=== PATIENT | male | born 1980 | race Caucasian/White ===

== ENCOUNTER 2017-03-23 02:41 | Inpatient (IN) | payer OTHER ==
--- NOTE | ~2017-03-23 | CT16 ---
[facility] A Service of [facility] RADIOLOGY TEXT RESULTS PATIENT: BRENDA GHTORA LOCATION: [address] : [birth year] UNIT #: [id number] AGE: [address]: Sebastien Wood MD SEX: M ORDER DR: [id number] [facility] [address] [facility]. [place], [place] [address] [id number] I MR#: [id number] Acc #: [id number] NAME: BRENDA GHOTRA : 1980 SEX: M STUDY DATE/TIME: 04/06/2017 19:22 UNIT: [facility] ROOM: [facility] STUDY DESCRIPTION: CT Angio Chest for PE Attending Physician: Sebastien Wood M.D. Referring Physician: Sebastien Wood M.D. Ordering Physician: Ada Shell M.D. Primary Care Physician: Primary Care Physician No MEDICAL IMAGING REPORT This report is preliminary unless electronic signature is present EXAM Chest CT PE protocol with contrast, 04/06/2017 INDICATION 36-year-old male with respiratory failure. Ventilator patient. Alcohol detoxification. TECHNIQUE Contrast-enhanced CT scan of the chest PE protocol was performed with 3-D reformats. COMPARISON Noncontrast CT chest 03/28/2017. This CT exam was performed with one or more of the following radiation dose reduction techniques: automatic exposure control, adjustment of mA and/or kV according to patient size, and iterative reconstruction. FINDINGS CT CHEST: There is motion artifact and beam hardening artifact from nonstandard patient positioning. These were apparently the best images possible. IV bolus adequate. Aorta demonstrates no aneurysm or dissection. There is no evidence of acute pulmonary embolus in the central pulmonary dural tree. Beyond the first and proximal second-order branches sensitivity for detection of pulmonary embolus is degraded for the reasons described above. Probable reactive mediastinal nodes. Heart borderline in size. No axillary adenopathy. Probable reactive axillary nodes present as well. Upper abdomen demonstrates splenomegaly and cirrhosis, indicative of [facility] A Service [facility] RADIOLOGY TEXT RESULTS PATIENT: BRENDA GHOTRA [address] [id number] [facility] [birth year] UNIT #: [id number] AGE: [address]: Sebastien Wood MD SEX: M ORDER DR: portal hypertension. There is upper abdominal ascites. Gallbladder distended. Liver suboptimally characterized on this examination in the setting of cirrhosis. Multiphase imaging could be performed when clinically appropriate for further assessment of the liver in the setting of cirrhosis. There are bilateral effusions at least small in size. There is probable compressive atelectasis or less likely pneumonia in the lung bases. Correlate with physical exam. There are areas of consolidation in the upper lobes, left greater than right most characteristic of pneumonia. No pneumothorax. Osseous structures demonstrate no suspicious bone lesion. IMPRESSION 1. No evidence of acute pulmonary embolus in the central pulmonary arterial tree. 2. No aortic aneurysm or dissection. 3. Small bilateral effusions with compressive atelectasis or pneumonia in the lung bases. Patchy consolidation in the upper lobes left greater than right most characteristic of pneumonia. No pneumothorax. 4. Cardiomegaly and probable reactive mediastinal and axillary nodes. 5. Upper abdomen demonstrates cirrhosis and hepatosplenomegaly with ascites most characteristic of underlying portal hypertension. 6. Distended gallbladder within the field of view. Dictated by... Amadeo Pinedo M.D. THIS IS AN ELECTRONICALLY VERIFIED REPORT Amadeo Pinedo M.D. at 04/06/2017 10:51 PM MARGARITO/catherine TD: 04/06/2017 22:17 JOB #: [id number] MEDICAL IMAGING REPORT Page 1 of 1 COPY
--- NOTE | ~2017-03-23 | CO ---
Unit #: [id number] #: [id number] Patient: LUANN MIKE [id number] [address] [place], [place] [address] [id number] I MR#: [id number] NAME: LUANN MIKE ROOM: [facility] Age: 36 Sex: M Admission Date: 03/23/2017 : 1980 Attending Physician: Sebastien Wood M.D. Primary Care Physician: No Primary Care Physician CONSULTATION REPORT REASON FOR CONSULTATION Followup. DISCUSSION Mr. Luann Mike is a 36-year-old white male seen in CCU3, bed 21, on 03/27/2017 at [facility]. The patient was still intubated, but no agitation. The patient's sedation is being lowered. He was started on Haldol, Cogentin, Ativan combination. The patient is tolerating medication fairly well. No side effects from medication. Plan to wean him off of the tube. The patient's and mother were at the bedside. The patient's vital signs are temperature afebrile, pulse 103, respiratory rate 16, blood pressure 123/66, oxygen saturation 98%. MENTAL STATUS EXAMINATION General appearance, the patient is dressed in hospital attire, receiving IV and intubated. No agitation. Attention span and concentration, unable to assess. Recent and remote memory, orientation unable to assess. Mood and affect, unable to assess. Thought process, thought content, recent and remote memory, language, fund of knowledge unable to assess. Insight and judgment impaired. DIAGNOSES Psychiatric: Alcohol use disorder, severe, F10.20. ASSESSMENT/PLAN 1. Psychotherapy, psychoeducation provided to the patient's family. 2. Educated about the benefits and side effects of the medication, course and prognosis of illness to the family. 3. If needed, consider further adjustment of medication. We will closely follow. Please feel free to call if any questions, telephone number [phone]. Dictated by.Julianne To/elaine TD: 03/28/2017 11:01 JOB #: [id number] Unit #: [id number] #: [id number] Patient: LUANN MIKE CONSULTATION REPORT Page 1 of 1 X Lopez Rainey MD CONSULTATION REPORT
--- NOTE | ~2017-03-23 | CT71 ---
[facility] A Service of [facility] RADIOLOGY TEXT RESULTS PATIENT: BRENDA GHOTRA LOCATION: [address] : [birth year] UNIT #: [id number] AGE: [address]: Sebastien Wood MD SEX: M ORDER DR: [id number] [place] [id number] [facility]. [place], [place] [address] [id number] I MR#: [id number] Acc #: [id number] NAME: BRENDA GHOTRA : 1980 SEX: M STUDY DATE/TIME: 03/28/2017 15:11 UNIT: [facility] ROOM: [facility] STUDY DESCRIPTION: CT Head Wo Contrast Attending Physician: Sebastien Wood M.D. Referring Physician: Sebastien Wood M.D. Ordering Physician: Ada Shell M.D. Primary Care Physician: No Primary Care Physician MEDICAL IMAGING REPORT This report is preliminary unless electronic signature is present EXAM CT of brain without contrast. HISTORY Acute mental status decline, confusion for [address] exam was performed with one or more of the following radiation dose reduction techniques: automatic exposure control, adjustment of mA and/or kV according to patient size, and iterative reconstruction. FINDINGS CT brain without contrast demonstrates no intracranial hemorrhage, mass or edema. No midline shift or ventricular dilatation or extraaxial fluid collection. Mucosal thickening in ethmoid air cells and in the inferior maxillary sinuses and in the frontal and sphenoid sinuses bilaterally. There is also opacification of multiple bilateral mastoid air cells. IMPRESSION 1. Negative CT brain. 2. Paranasal sinusitis. Dictated by... Ishan Choi M.D. THIS IS AN ELECTRONICALLY VERIFIED REPORT Ishan Choi M.D. at 03/28/2017 11:33 PM ANEL/blanquita TD: 03/28/2017 21:35 JOB #: [id number] [facility] A Service [facility] RADIOLOGY TEXT RESULTS PATIENT: BRENDA GHOTRA LOCATION: [facility] CICCU3-21 : 82 UNIT #: [id number] AGE: [address]: Sebastien Wood MD SEX: M ORDER DR: MEDICAL IMAGING REPORT Page 1 of 1 COPY
--- NOTE | ~2017-03-23 | FU ---
[facility] Nutrition Therapy DATE: 04/03/17 Patient: BRENDA GHOTRA Physician: SHAUN Address: [address] [facility] Room/Bed: [address], Zip: [place] [address] Admit Date: 03/23/17 Date of : [birth year] Height: 5 6 Weight: 202 92 NUTRITION MONITORING/FOLLOW-UP: Reason: Enteral nutrition follow-up Admitting Dx: 36 y/o male admitted with acute respiratory failure after being admitted to [facility] to undergo ETOH detox Anthropometrics: Ht: 66", admission wt: 75 kg, current wt: 92 kg (04/03), BMI: 26.6 (overweight; based on admission wt) Labs: K+ 3.4, AST 99 (trending down), ALT 58 (trending down), Mg/Na WNL, no Phos Meds: Miralax, Precedex, Propofol @ 10.3 ml/hr, Vit B12, Fentanyl, Versed, PPI, Milk of Mg, Thiamine, Folic acid, MVI with minerals, oral Zinc, Loperamide, psych meds noted GI: Last BM 03/28, abdomen firm, RN confirms patient is not impacted, bowel regimen started 04/02 Skin: Issues reviewed, no changes; 2-3+ edema noted Estimated Nutrition Needs: 1034-2452 kcals per day (25-28 kcals/kg admission wt) 75-90 g protein per day (1-1.2 g/kg admission wt) Fluids consistent with kcal needs or per MD Assessment: Chart reviewed, events noted. Patient still intubated, + trach 04/02, still no BM in 5 days however a bowel regimen was started yesterday. RN confirms patient's abdomen is firm but he is not impacted. He is following some simple commands. Enteral feeds are off at this time due to possible PEG placement this afternoon, however RN noted he has been tolerating his previous EN regimen: Jevity 1.5 @ 30 ml/hr (goal WITH Propofol) + Prostat TID through DHT. Unable to determine volume received past 24 hours as pump history is not available at this time. Propofol is currently providing 272 lipid kcals, was providing 813 lipid kcals 2 days ago at time of last RD follow-up- will adjust recs accordingly and continue to follow hospital course. See nutritional goals, diagnoses and recs as stated below. Dx: 1) Inadequate enteral nutrition infusion r/t EN held AEB 42% goal volume received x 24 hours, 63% received x 38 hours - NO LONGER RELEVANT 2) Unintentional weight loss r/t ETOH abuse AEB patient's mother/RN report - ACTIVE New dx: 1) Inadequate enteral nutrition infusion r/t possible PEG placement AEB EN on hold. [facility] Nutrition Therapy DATE: 04/03/17 Patient: BRENDA GHOTRA Physician: SHAUN Address: [address] [facility] Room/Bed: [address], Zip: [place] [address] Admit Date: 03/23/17 Date of : [birth year] Height: 5 6 Weight: 202 92 Intervention: See recs below Monitoring, Evaluation and Goals: 1. EN to provide > 80% goal volume x 24 hours - UNABLE TO DETERMINE (Pump off) 2. Labs WNL - IN PROGRESS (K+ low, AST/ALT elevated) 3. Prevent unintentional weight loss -IN PROGRESS (weight up 17 kg since admission; edema vs inaccurate scales?) 4. GI function WNL - IN PROGRESS (still no BM since 03/28; bowel regimen in place) Monitor: Per protocol, criteria to determine if above goals met Recommendations: 1. If PEG is placed resume enteral nutrition once able with Jevity 1.5 @ 20 ml/hr and increase by 10 ml q 4 hours until *NEW GOAL RATE CONSIDERING DECREASE IN PROPOFOL RATE* of 45 ml/hr is reached and decrease Prostat to 30 ml daily. This nutrition regimen + kcals from Propofol (currently @ 10.3 ml/hr providing 272 lipid kcals) will provide 1992 kcals, 84 g protein and [address] will monitor Propofol rate during daily rounds with team and adjust recs as needed. If Propofol is D/C increase feeds to new goal rate of 55 ml/hr and discontinue Prostat. This will provide 1980 kcals, 84 g protein and 1003 ml water. 3. Continue bowel regimen to promote regular BM's. Status: Moderate nutrition risk Respectfully, Nakia Garcia, RD, LD [facility] and Nutritional Services [facility] cc: client file
--- NOTE | ~2017-03-23 | CR72 ---
[facility] Service of [facility] RADIOLOGY TEXT RESULTS PATIENT: BRENDA GHOTRA LOCATION: [address] : [birth year] UNIT #: [id number] AGE: [address]: Sebastien Wood MD SEX: M ORDER DR: [id number] [facility] [address] [facility]. [place], [place] [address] [id number] MR#: [id number] Acc #: [id number] NAME: BRENDA GHOTRA : 1980 SEX: M STUDY DATE/TIME: 03/31/2017 UNIT: [facility] ROOM: [facility] STUDY DESCRIPTION: CR Chest Single View Portable Attending Physician: Sebastien Wood M.D. Referring Physician: Sebastien Wood M.D. Ordering Physician: Talia Mansfield M.D. Primary Care Physician: Primary Care Physician No MEDICAL IMAGING REPORT This report is preliminary unless electronic signature is present EXAM Chest portable 03/31/2017 09:16 hours HISTORY 36-year-old with ethanol detox, withdrawal and shortness of air. Symptoms since 03/23/2017. COMPARISON 03/31/2017 03:41 hours FINDINGS Portable upright film demonstrates persistent low lung volumes with are stable satisfactory positioning of the endotracheal tube, left IJ catheter and flexible feeding tube. There are persistent bilateral airspace changes unchanged. There is no definite pleural effusion or pneumothorax. IMPRESSION No appreciable change from 0341 hours. Stable support equipment with persistent bilateral airspace changes. Dictated by... Josy Silverio M.D. THIS IS AN ELECTRONICALLY VERIFIED REPORT Josy Silverio M.D. at 03/31/2017 2:26 PM SMM/jordan TD: 03/31/2017 12:54 JOB #: [id number] MEDICAL IMAGING REPORT Page 1 of 1 COPY
--- NOTE | ~2017-03-23 | A ---
[facility] Nutrition Therapy DATE: 03/24/17 Patient: BRENDA GHOTRA Physician: SHAUN Address: [address] [place] [address] Room/Bed: [address], Zip: [place] [address] Admit Date: 03/23/17 Date of : [birth year] Height: 5 6 Weight: 165 75 NUTRITIONAL ASSESSMENT: REASON: Seen due to NPO/intubation in ICU, receiving enteral nutrition + consult related to ETOH abuse Admitting Dx: 36 y/o male admitted from [facility] with acute respiratory failure/ETOH detox PMH: Daily ETOH/marijuana abuse, 1 ppd smoker, GERD, genital herpes Anthropometrics: Ht: 66", Wt: 75 kg (165 lbs), BMI: 26.6 (overweight) Labs: K+ 3.1, Mg 1.5, AST 239, ALT 78 Meds: Phenergan, D5, Fentanyl, IVF, Versed, Milk of Mg, Loperamide, PPI, Vit B12, Therapeutic formula, Thiamine, Folic acid, MgSO4 I/O & Bowel function: 3262/2098, LBM 5/8 Skin Integrity: Reviewed; no nutritionally significant issues Estimated Nutrition Needs: 9782-[address] kcals per day (25-28 kcals/kg) 75-90 g protein per day (1-1.2 g/kg) Fluids consistent with kcal needs or per MD Assessment: Chart reviewed, events noted. See admitting dx and PMH as stated above. Patient is currently intubated and sedated with fentanyl/versed, propofol is off at this time. Although the patient scored 0 points on the malnutrition risk screen RN reports that the patient's mother states he has lost a significant amount of weight over the past months, but she is unsure how much. He is currently receiving enteral nutrition per DHT with Jevity 1.5 @ 20 ml/hr, to increase per RD recs. Pt is at risk for refeeding syndrome due to daily ETOH abuse, electrolyte abnormalities and weight loss- see recs below. Will continue to follow hospital course. Dx: Inadequate enteral nutrition infusion r/t goal rate not yet established AEB Jevity 1.5 @ 20 ml/hr. Unintentional weight loss r/t ETOH abuse AEB mother/RN report. Intervention: Increase EN to goal, monitor for s/s of refeeding syndrome, replace lytes Monitoring, Evaluation and Goals: [facility] Nutrition Therapy DATE: 03/24/17 Patient: BRENDA GHOTRA Physician: SHAUN Address: [address] [place] [address] Room/Bed: [address], Zip: [place] [address] Admit Date: 03/23/17 Date of : [birth year] Height: 5 6 Weight: 165 75 1. EN consistent with estimated nutrition needs. 2. Prevent/correct micro/macro nutritent deficiencies. 3. Improvement in labs (lytes, AST, ALT WNL). 4. Prevent unintentional weight loss. Monitor: Per protocol, criteria to determine if above goals met Recommendations: 1. Aggressively replace lytes to WNL prn (K/Mg low). 2. Increase enteral feeds with Jevity 1.5 by 10 ml q 12 hours until goal rate of 55 ml/hr is reached, to provide 1980 kcals, 84 g protein and 1003 ml water. Once at goal rate add free water flushes of 250 ml QID and hold liquid IVF, or per MD. *Patient is at risk for refeeding syndrome, please closely monitor lytes and replace prn, monitor glucose. 3. Continue MVI, Thiamine, Folic acid. 4. If extubated advance to regular diet as tolerated, suggest WELL [employer]ING [employer]TAIN eval if intubated for > 48 hours. Patient could benefit from oral nutrition supplement such as Ensure Enlive BID due to recent weight loss- please order (available in chocolate/vanilla/strawberry). RD will follow hospital course Moderate-severe nutrition risk Respectfully, Nakia Garcia, DEVON, LD Food and Nutritional Services [facility] cc: client file
--- NOTE | ~2017-03-23 | OR ---
Unit #: [id number] #: [id number] Patient: BRENDA GHOTRA [id number] [address] [place], [place] [address] [id number] MR#: [id number] NAME: BRENDA GHOTRA ROOM: [facility] Date of Procedure: 04/04/2017 Admission Date: 03/23/2017 Surgeon: Pancho Fragoso M.D. : 1980 Attending Physician: Sebastien Wood M.D. Referring Physician: Sebastien Wood M.D. Primary Care Physician: Primary Care Physician No OPERATIVE REPORT PROCEDURE PERFORMED Esophagogastroduodenoscopy with percutaneous endoscopic gastrostomy tube placement. INDICATIONS FOR PROCEDURE A 36-year-old gentleman with severe mental status changes, needed enteral access for prolonged feeding. MEDICATIONS Monitored anesthesia. POSTOPERATIVE FINDINGS 1. Early esophageal varices. 2. Normal stomach, normal duodenum and distal duodenum. 3. Successful placement of G-tube by push method. PLAN Please see inpatient orders. DESCRIPTION OF PROCEDURE The patient was explained of the procedure, risks, and benefits. Informed consent was obtained from power of transactional attorney. Endo team was brought to the ICU. The patient already on tracheostomy. Monitored anesthesia was given. The scope was passed down the mouth into the esophagus, stomach, duodenum, and distal duodenum. Exam was completed. Findings as described. At this point, we found a good spot for PEG tube placement by transillumination and indentation. The skin was then cleaned and draped. Small incision was made. Trocar and cannula passed through the incision. A wire was passed through the trocar, where it was pulled out of the patient's mouth using a scope and snare from the inside. Push method tube was placed over the wire and pulled out of the anterior abdominal wall, where it was secured with an external bumper. The scope was reintroduced. Minimal bleeding was seen. Gently, I pulled the scope out. He tolerated it well. No major complications were seen. Dictated by... Julianne Howard/sera TD: 04/04/2017 23:07 Unit #: [id number] #: [id number] Patient: BRENDA GHOTRA JOB #: [id number] OPERATIVE REPORT Page 1 of 1 X Pancho Fragoso MD PROCEDURE OPERATIVE NOTE
--- NOTE | ~2017-03-23 | CO ---
Unit #: [id number] #: [id number] Patient: LUANN GHOTRA [id number] [facility] [address] [facility]. [place], [place] [address] [id number] MR#: [id number] NAME: LUANN GHOTRA ROOM: [facility] Age: 36 Sex: M Admission Date: 03/23/2017 : 1980 Attending Physician: Sebastien Wood M.D. Primary Care Physician: Primary Care Physician No Consultation Date: 04/04/2017 CONSULTATION REPORT REASON FOR CONSULTATION Followup. DISCUSSION Mr. Luann Ghotra is a 36-year-old white male, seen in CCU-3, bed 21 on 04/04/2017 at [facility]. The patient is still somewhat agitated, needing bilateral hand restraints, breathing through the trach. The patient was ventilated. The patient was unable to give any coherent history. Still having problem with the aggression and confusion. The patient's vital signs; temperature 97.1, pulse 73, respirations 24, blood pressure 114/62, oxygen saturation 92%. The patient is on Haldol, Cogentin, and Ativan combination, which was effective. In the morning when he was agitated, the patient is getting t.i.d. through Dobbhoff tube. Information obtained from the nursing staff, chart reviewed. REVIEW OF SYSTEMS A complete review of systems is unremarkable, unable to obtain. MENTAL STATUS EXAMINATION Vital signs; please see above. General appearance; the patient dressed in hospital attire, lying in bed, receiving oxygen through trach, ventilated, receiving IV. The patient was somewhat agitated. Attention span and concentration, poor. Speech, unable to assess. Orientation, mood and affect, thought process, thought content; unable to assess. Recent and remote memory; unable to assess. Language and fund of knowledge; unable to assess. Insight and judgment, impaired. DIAGNOSES Psychiatric: Delirium, F05; alcohol use disorder, [id number], F10.20. ASSESSMENT AND PLAN Recommending at this time to continue with current medication combination. Continue with hand restraint for safety of the patient. If needed, consider change of medication. Please feel free to call if any questions, telephone #[phone]. Dictated by... Lopez Rainey M.D. [facility]/sera Unit #: [id number] #: [id number] Patient: LUANN GHOTRA TD: 04/05/2017 14:12 JOB #: [id number] CONSULTATION REPORT Page 1 of 1 X Lopez Rainey MD CONSULTATION REPORT
--- NOTE | ~2017-03-23 | CO ---
Unit #: [id number] #: [id number] Patient: BRENDA GHOTRA [id number] [address] [address] [id number] I MR#: [id number] NAME: BRENDA HGOTRA ROOM: [facility] Age: 36 Sex: M Admission Date: 03/23/2017 : 1980 Attending Physician: Sebastien Wood M.D. Primary Care Physician: No Primary Care Physician Consultation Date: 04/02/2017 CONSULTATION REPORT REASON FOR CONSULTATION Followup. DISCUSSION Mr. Knog is a 36-year-old white male seen in CCU-3 bed-21 on 04/02/17. Patient was extubated and trach was placed. Patient is still on propofol, gradually tapering, still having problem with the agitation, requiring restraint bilateral. Currently on Cogentin, haloperidol, Ativan. No side effects of medication. Unable to give any reliable information. MENTAL STATUS EXAMINATION VITAL SIGNS: Temperature afebrile, pulse 97, respirations 16, blood pressure 128/76. Oxygen saturation 99%. GENERAL APPEARANCE: Patient dressed in hospital attire. Attention span and concentration poor. Speech - unable to assess. Orientation - unable to assess. Mood and affect - labile. Thought process/thought content/recent and remote memory - unable to assess. Language - unable to assess. Fund of knowledge impaired. Insight and judgment impaired. DIAGNOSIS PSYCHIATRIC: 1. Alcohol use disorder, severe, - F10.20 2. Delirium - F05 ASSESSMENT/PLAN Advised to continue with bilateral hand restraints for the safety. Continue with current medication with the plan to consider additional medication if needed. Continue with the treatment at ICU. We will continue to follow. Please feel free to call if any questions. Telephone number [phone]. Dictated by... Lopez Rainey M.D. VAL/edgar TD: 04/03/2017 05:50 JOB #: [id number] Unit #: [id number] #: [id number] Patient: BRENDA GHOTRA CONSULTATION REPORT Page 1 of 1 X Chhibber,Lopez Z MD X CONSULTATION REPORT
--- NOTE | ~2017-03-23 | CR72 ---
[facility] A Service of [facility] RADIOLOGY TEXT RESULTS PATIENT: BRENDA GHOTRA LOCATION: [address] : 82 UNIT #: [id number] AGE: [address]: Vikash Davila MD SEX: M ORDER DR: [id number] [facility] [address] [facility]. [place], [place] [address] [id number] I MR#: [id number] Acc #: [id number] NAME: BRENDA GHOTRA : 1980 SEX: M STUDY DATE/TIME: 04/08/2017 4:18 UNIT: [facility] ROOM: [facility] STUDY DESCRIPTION: CR Chest Single View Portable Attending Physician: Vikash Davila M.D. Referring Physician: Sebastien Wood M.D. Ordering Physician: Ada Shell M.D. Primary Care Physician: No Primary Care Physician MEDICAL IMAGING REPORT This report is preliminary unless electronic signature is present EXAM Single view chest. HISTORY Respiratory failure. Alcohol withdrawal. Pneumonia. COMPARISON CT thorax, 04/06/2017. FINDINGS A single portable AP view of the chest was obtained. Tracheostomy and right PICC remain in place. Heart and mediastinal structures are unchanged. Diffuse airspace opacities and pleural effusions are unchanged. No pneumothorax. IMPRESSION No interval change. Dictated by... Bryant Peck M.D. THIS IS AN ELECTRONICALLY VERIFIED REPORT Bryant Peck M.D. at 04/08/2017 9:07 PM Rhys TD: 04/08/2017 11:04 JOB #: [id number] MEDICAL IMAGING REPORT Page 1 of 1 COPY
--- NOTE | ~2017-03-23 | US139 ---
[facility] A Service of [facility] RADIOLOGY TEXT RESULTS PATIENT: BRENDA GHOTRA LOCATION: [place] [address]-21 : 82 UNIT #: [id number] AGE: [address]: Sebastien Wood MD SEX: M ORDER DR: [id number] [facility] [address] [facility]. [place], [place] [address] [id number] I MR#: [id number] Acc #: [id number] NAME: BRENDA GHOTRA : 1980 SEX: M STUDY DATE/TIME: 04/02/2017 16:59 UNIT: [facility] ROOM: [facility] STUDY DESCRIPTION: US UE Veins Complete Wisam Stdy Attending Physician: Sebastien Wood M.D. Referring Physician: Sebastien Wood M.D. Ordering Physician: Vikash Davila M.D. Primary Care Physician: No Primary Care Physician MEDICAL IMAGING REPORT This report is preliminary unless electronic signature is present EXAM Color Doppler ultrasound examination of the right upper extremity. HISTORY Bilateral upper extremity swelling for the past 2 days. TECHNIQUE Ultrasound evaluation was performed with morales-scale, color-flow and Doppler spectral waveform analysis. FINDINGS There is a short segment of superficial venous occlusive disease in the proximal cephalic vein. There is no evidence of DVT. The axillary subclavian and jugular veins as well as the brachial veins are widely patent with good compressibility and good augmentation of flow with distal compression. All veins on the left are widely patent. IMPRESSION Normal examination of the left. Superficial venous thrombosis is seen involving a segment of the proximal cephalic vein. The deep veins on the right are widely patent. Dictated by... Ronny Gardner M.D. THIS IS AN ELECTRONICALLY VERIFIED REPORT Ronny Gardner M.D. at 04/04/2017 12:41 PM SAIMA/blanquita TD: 04/02/2017 19:11 JOB #: [id number] [facility] A Service [facility] RADIOLOGY TEXT RESULTS PATIENT: BRENDA GHOTRA [address] [birth year] UNIT #: [id number] AGE: [address]: Sebastien Wood MD SEX: M ORDER DR: MEDICAL IMAGING REPORT Page 1 of 1 COPY
--- NOTE | ~2017-03-23 | FU ---
[facility] Nutrition Therapy DATE: 03/27/17 Patient: BRENDA GHOTRA Physician: MORCAR Address: [facility] [facility] Room/Bed: [address], Zip: [place] [address] Admit Date: 03/23/17 Date of : [birth year] Height: 5 6 Weight: 188 85.5 NUTRITION MONITORING/FOLLOW-UP: Reason: Enteral nutrition follow-up Anthropometrics: Ht: 66" Adm wt: 75 kg BMI: 26.6 Current wt: 85.5 kg Labs: Ca++ 7.7, Alb 2.2, AST 156, ALT 54 Meds: NaCl, Mg, K, Phenergan, Protonix, Vitamin B12, Folic acid, Thiamine, Milk of Magnesia, Zofran I&O's: 8524/3064, last BM 03/24 Skin: No changes Edema: BUE 1+ Estimated Nutrition Needs: 3444-2339 kcal (25-28 kcal/kg) 75-90 g protein (1.0-1.2 g/kg) Assessment: Chart reviewed, events noted. Pt remains intubated in ICU. Per RN, pt's sedation has been turned off this am. Per RN, pt is tolerating tube feeds of Jevity 1.5 @ goal rate of 55 mL/hr. Per pump history, pt received 72% of goal volume x 48 hrs. Per RN, pt had bronoscopy yesterday (03/26) which revealed PNA. Per chart, physician diagnosed pt with moderate protein-calorie malnutrition d/t recent weight loss, moderate-severe nutrition risk, signs of circulatory collapse and low albumin. Nutrition dx remains, see new evidence. See recommendations below. *Of note, RD unable to definitively diagnose with protein calorie malnutrition at this time, as the patient's weight loss and PO intake prior to arrival is unknown. He did not appear to have any physical s/s of muscle/fat loss. Dx: Inadequate enteral nutrition infusion RT bronchoscopy AEB pt receiving 72% of goal volume x 48 hrs. -ACTIVE Unintentional weight loss RT ETOH abuse AEB mother/RN report. -ACTIVE Intervention: 1. Continue current enteral nutrition regimen [facility] Nutrition Therapy DATE: 03/27/17 Patient: BRENDA GHOTRA Physician: SHAUN Address: [address] [facility] Room/Bed: [address], Zip: [place] [id number] Admit Date: 03/23/17 Date of : [birth year] Height: 5 6 Weight: 188 85.5 Monitoring, Evaluation and Goals: 1. Enteral nutrition; provide >80% of estimated needs and goal volume -NOT MET/IN PROGRESS 2. Labs; WNL -IN PROGRESS 3. Weight; prevent unintentional weight loss -IN PROGRESS Recommendations: 1. Continue enteral nutrition support with Jevity 1.5 @ 55 mL/hr. This provides: 1980 kcal/ 84 g protein/ 1003 mL free H2O. 2. If extubated, recommend CAR HEAD LINER INSTALLER evaluation. Advance diet as tolerated to regular per CAR HEAD LINER INSTALLER evaluation. Pt would benefit from oral nutrition supplements, consider ordering Ensure once diet advances. 3. Suggest checking Phos level with next lab draw due to risk for refeeding syndrome. If low replete to WNL. Status: Pt is at a moderate nutritional risk. RD will f/u per protocol. Respectfully, Mouna Martinez, Hand Paint Mixer Nakia Garcia RD, LD Food and Nutritional Services [facility] cc: client file
--- NOTE | ~2017-03-23 | CR72 ---
[facility] A Service of [facility] & [facility] RADIOLOGY TEXT RESULTS PATIENT: BRENDA GHOTRA LOCATION: [address] : 82 UNIT #: [id number] AGE: [address]: Sebastien Wood MD SEX: M ORDER DR: [id number] [facility] [address] [facility]. [place], [place] [address] [id number] I MR#: [id number] Acc #: [id number] NAME: BRENDA GHOTRA : 1980 SEX: M STUDY DATE/TIME: 03/25/2017 11:46 UNIT: [facility] ROOM: [facility] STUDY DESCRIPTION: CR Chest Single View Portable Attending Physician: Sebastien Wood M.D. Referring Physician: Sebastien Wood M.D. Ordering Physician: Sebastien Wood M.D. Primary Care Physician: No Primary Care Physician MEDICAL IMAGING REPORT This report is preliminary unless electronic signature is present EXAM Portable chest, 03/25/2017. HISTORY Ventilator patient. Alcohol detoxification, short of air. FINDINGS AP portable chest compared with earlier today. Endotracheal tube, mid trachea. Left-sided central venous catheter tip in the lower SVC. Heart size stable. Fairly extensive infiltrate in the left lung is stable. No pneumothorax is identified. There is a small volume of left pleural fluid. Dictated by... Ronny Villaseñor Jr., M.D. THIS IS AN ELECTRONICALLY VERIFIED REPORT Ronyn Villaseñor Jr., M.D. at 03/25/2017 4:48 PM FRANKLIN/reji TD: 03/25/2017 13:52 JOB #: [id number] MEDICAL IMAGING REPORT Page 1 of 1 COPY
--- NOTE | ~2017-03-23 | CR72 ---
[facility] A Service of [facility] & [facility] RADIOLOGY TEXT RESULTS PATIENT: BRENDA GHOTRA LOCATION: [address]21 : [birth year] UNIT #: [id number] AGE: [address]: Sebastien Wood MD SEX: M ORDER DR: [id number] [facility] [address]. [place], [place] [address] [id number] I MR#: [id number] Acc #: [id number] NAME: BRENDA GHOTRA : 1980 SEX: M STUDY DATE/TIME: 03/29/2017 5:50 UNIT: [facility] ROOM: [facility] STUDY DESCRIPTION: CR Chest Single View Portable Attending Physician: Sebastien Wood M.D. Referring Physician: Sebastien Wood M.D. Ordering Physician: Ada Shell M.D. Primary Care Physician: Primary Care Physician No MEDICAL IMAGING REPORT This report is preliminary unless electronic signature is present EXAM Portable chest INDICATION Follow up support lines and tubes. COMPARISON 03/28/2017. FINDINGS Support lines and tubes are stable. Worsening right lung infiltrates and also worsening infiltrates within the left lung. Heart size stable. IMPRESSION Worsening bilateral pulmonary infiltrates. Support lines and tubes are stable. Dictated by... Narciso Garcia M.D. THIS IS AN ELECTRONICALLY VERIFIED REPORT Narciso Garcia M.D. at 03/29/2017 3:56 PM DARRELL/callum TD: 03/29/2017 15:05 JOB #: [id number] MEDICAL IMAGING REPORT Page 1 of 1 COPY
--- NOTE | ~2017-03-23 | CR72 ---
[facility] A Service of [facility] RADIOLOGY TEXT RESULTS PATIENT: BRENDA HGOTRA LOCATION: [address] : [birth year] UNIT #: [id number] AGE: [address]: Sebastien Wood MD SEX: M ORDER DR: [id number] [place] [id number] [place], [place] [address] [id number] I MR#: [id number] Acc #: [id number] NAME: BRENDA GHOTRA : 1980 SEX: M STUDY DATE/TIME: 03/25/2017 9:00 UNIT: [facility] ROOM: [facility] STUDY DESCRIPTION: CR Chest Single View Portable Attending Physician: Sebastien Wood M.D. Referring Physician: Sebastien Wood M.D. Ordering Physician: Physician Non-Staff Primary Care Physician: No Primary Care Physician MEDICAL IMAGING REPORT This report is preliminary unless electronic signature is present EXAM Portable chest. INDICATION Endotracheal tube placement. COMPARISON STUDIES Comparison with yesterday. FINDINGS Stable ET tube. New infiltrate in the left upper and mid zone. Worsening consolidation left base. Heart size stable. IMPRESSION New infiltrate left upper and mid zone and worsening consolidation left base. Endotracheal tube is stable. Dictated by... Narciso Garcia M.D. THIS IS AN ELECTRONICALLY VERIFIED REPORT Narciso Garcia M.D. at 03/26/2017 5:13 PM DARRELL/satish TD: 03/25/2017 10:02 JOB #: [id number] MEDICAL IMAGING REPORT Page 1 of 1 COPY
--- NOTE | ~2017-03-23 | CO ---
Unit #: [id number] #: [id number] Patient: BRENDA GHOTRA [id number] [address] [place], [place] [address] [id number] I MR#: [id number] NAME: BRENDA GHOTRA ROOM: [facility] Age: 36 Sex: M Admission Date: 03/23/2017 : 1980 Attending Physician: Pérez Coy M.D. Primary Care Physician: Carlene Primary Care Physician Consultation Date: 03/23/2017 CONSULTATION REPORT REASON FOR CONSULT ICU management. HISTORY OF PRESENT ILLNESS This is a 36-year-old male with past medical history significant for extensive alcoholism, who [facility]. Per family patient committed himself to the [facility] a few days ago for alcohol detox. However, yesterday he called his family stating that he wanted to go back home because he was board and his doctor told him he can take two days off. The family refused to pick him up knowing that he was manipulating to leave the facility. The family was called later on at night stating that the patient was transferred to our emergency room due to agitation and altered mental status. In the ER patient was intubated to protect his airway and control his behavior. Currently the patient is heavily sedated with no immediate complication. PAST MEDICAL HISTORY Alcoholism. ALLERGIES Penicillin. PAST SURGICAL HISTORY None. SOCIAL HISTORY Patient drinks alcohol and smokes one pack per day for unknown period of time. No clear history of street drugs. FAMILY HISTORY Alcoholism in his father in the past. REVIEW OF SYSTEMS Unable to obtain. PHYSICAL EXAMINATION GENERAL: Patient is heavily sedated on the vent. VITAL SIGNS: Blood pressure 118/62. Respiratory rate 18. O2 saturation Unit #: [id number] #: [id number] Patient: BRENDA GHOTRA 100. HEENT: Normocephalic and atraumatic. PERRLA. EOMI. NECK: Supple. No JVD. No lymphadenopathy. CHEST: Clear to auscultation bilaterally. HEART: S1, S2. No murmur, gallops or rubs. ABDOMEN: Soft, nontender. Bowel sound is positive. No hepatosplenomegaly. EXTREMITIES: Patient has multiple bruises on his wrists and ankles likely from restraints. SKIN: No rashes. INSIDE METER TESTER: Awake, alert, oriented x3. No focal motor/sensory deficit. DIAGNOSTIC STUDIES LABORATORY: Creatinine 0.7, AST 240, ALT 69, white blood count 10.3 IMAGING: Chest x-ray is noted and reviewed. ASSESSMENT 1. Acute hypoxic respiratory failure. 2. Alcohol withdrawal. 3. Alcoholic hepatitis. 4. Morbid obesity. PLAN 1. Patient will be continued on the ventilator for now and will cut down on his sedation to assess his mental status in the morning. 2. Continue IV fluid and monitor urine output. 3. Observe off antibiotics. 4. CIWA protocol once extubated. 5. Psych evaluation once extubated. 6. Tube feed and bowel regimen. 7. DVT/GI prophylaxis. I discussed the case at length with the mom and family. Dictated by... Sergio Mansfield M.D. EA/gary TD: 03/23/2017 18:33 JOB #: [id number] CONSULTATION REPORT Page 1 of 1 X SERGIO HAMPTON MD X CONSULTATION REPORT
--- NOTE | ~2017-03-23 | CO ---
Unit #: [id number] #: [id number] Patient: LUANN GHOTRA [id number] [address] [address] [id number] I MR#: [id number] NAME: LUANN GHOTRA ROOM: [facility] Age: 36 Sex: M Admission Date: 03/23/2017 : 1980 Attending Physician: Sebastien Wood M.D. Primary Care Physician: No Primary Care Physician Consultation Date: 04/03/2017 CONSULTATION REPORT REASON FOR CONSULTATION Followup. DISCUSSION Luann Ghotra is a 36-year-old white male seen in CCU-3 bed-21 on 04/03/17 at [facility]. Patient currently is breathing through the trach and needing bilateral hand restraints, unable to give coherent history, confused, guarded, agitated. VITAL SIGNS: 98.7, 87, 24, 109/49. Oxygen saturation 95%. Patient unable to give any coherent history. REVIEW OF SYSTEMS Complete review of systems unremarkable. MENTAL STATUS EXAMINATION GENERAL APPEARANCE: Patient dressed in hospital attire, receiving breathing through the trach, ventilated. Attention span and concentration poor. Speech - unable to understand. Orientation - unable to assess. Mood and affect labile, agitated. Thought process/thought content - guarded, confused. Recent and remote memory poor. Language - unable to assess. Fund of knowledge - unable to assess. Insight and judgment impaired. DIAGNOSIS PSYCHIATRIC: 1. Delirium - F05 2. Alcohol use disorder, severe - F10.20 ASSESSMENT/PLAN Recommending at this time to continue with the current treatment in CCU. Continue with current medication, Haldol, Cogentin, Ativan. If needed, consider further additional medication. Please feel free to call if any questions. Telephone number [phone]. Dictated by... Lopez Rainey M.D. Xavier Unit #: [id number] #: [id number] Patient: LUANN GHOTRA TD: 04/04/2017 08:23 JOB #: [id number] CONSULTATION REPORT Page 1 of 1 X Lopez Rainey MD CONSULTATION REPORT
--- NOTE | ~2017-03-23 | OR ---
Unit #: [id number] #: [id number] Patient: BRENDA GHOTRA [id number] [address] [place], [place] [address] [id number] I MR#: [id number] NAME: BRENDA GHOTRA ROOM: [facility] Date of Procedure: 04/02/2017 Admission Date: 03/23/2017 Surgeon: Ada Shell M.D. : 1980 Attending Physician: Sebastien Wood M.D. Referring Physician: Sebastien Wood M.D. Primary Care Physician: Primary Care Physician No PROCEDURE OPERATIVE NOTE PROCEDURE Bedside percutaneous dilatation tracheostomy. INDICATION Respiratory failure. PERFORMING PHYSICIAN Ada Shell M.D. SECURITIES SALES ASSOCIATE John JohnsonRDavid DETAIL OF PROCEDURE Procedure was initiated at the bedside. A time-out was performed verifying the patient, surgical site, and the procedure. The patient received 10 mg of Norcuron, 4 mg Versed and 100 mcg of fentanyl before the procedure. The neck was then prepped and draped in sterile fashion and the area at the midline trachea where the cricothyroid membrane was palpated, approximately two fingerbreadths above the sternal notch, a midline vertical incision was created with a scalpel after local infiltration of 1% lidocaine. The patient was adequately sedated and paralyzed. Dissection was carried out in the subcutaneous tissue in a careful blunt manner with hemostat. The anterior tracheal was visualized with a tracheal ring. With the help of a bronchoscopic guidance, 14-gauge needle was passed through the anterior tracheal wall between the tracheal ring and then a guidewire was passed through under bronchoscopic guidance and then sequential dilators were passed. The guidewire was removed and a size 6 Shiley trach was passed over the dilator and guidewire was removed. The tracheostomy was secured with two interrupted sutures in place and placement of the tracheostomy was confirmed by passing the bronchoscope through the tracheostomy tube which was sitting well above the brenda. All minimal secretions which are blood-tinged were suctioned and patient was receiving good tidal volume postoperatively and the cuff was inflated. Patient tolerated the procedure very, no complications happened. Post procedure chest x-ray was ordered. Dictated by... Unit #: [id number] #: [id number] Patient: BRENDA GHOTRA M.D. SJ/cs TD: 04/02/2017 21:01 JOB #: [id number] PROCEDURE OPERATIVE NOTE Page 1 of 1 X Ada Shell MD PROCEDURE OPERATIVE NOTE
--- NOTE | ~2017-03-23 | CR72 ---
[facility] A Service of [facility] & [facility] RADIOLOGY TEXT RESULTS PATIENT: BRENDA GHOTRA LOCATION: [address] : [birth year] UNIT #: [id number] AGE: [address]: Sebastien Wood MD SEX: M ORDER DR: [id number] [facility] [address] [facility]. [place], [place] [address] [id number] I MR#: [id number] Acc #: [id number] NAME: BRENDA GHOTRA : 1980 SEX: M STUDY DATE/TIME: 04/03/2017 04:45 UNIT: [facility] ROOM: [facility] STUDY DESCRIPTION: CR Chest Single View Portable Attending Physician: Sebastien Wood M.D. Referring Physician: Sebastien Wood M.D. Ordering Physician: Ada Shell M.D. Primary Care Physician: Primary Care Physician No MEDICAL IMAGING REPORT This report is preliminary unless electronic signature is present EXAM Portable chest 04/03/2017 04:45 INDICATION Respiratory failure. Alcohol withdrawal. FINDINGS AP portable chest compared with 04/02/2017. Left IJ line has been removed. Right arm PICC has its tip near the right atrium. Lung volumes are quite low. Patchy bilateral infiltrates, left greater than right, are not significantly changed. Heart is enlarged. No pneumothorax. Dictated by... Ronny Villaseñor Jr., M.D. THIS IS AN ELECTRONICALLY VERIFIED REPORT Ronny Villaseñor Jr., M.D. at 04/03/2017 10:15 PM FRANKLIN/callum TD: 04/03/2017 07:46 JOB #: [id number] MEDICAL IMAGING REPORT Page 1 of 1 COPY
--- NOTE | ~2017-03-23 | CR72 ---
[facility] A Service of [facility] & [facility] RADIOLOGY TEXT RESULTS PATIENT: BRENDA GHOTRA LOCATION: [address] : [birth year] UNIT #: [id number] AGE: [address]: Sebastien Wood MD SEX: M ORDER DR: [id number] [facility] [address] [facility]. [place], [place] [address] [id number] I MR#: [id number] Acc #: [id number] NAME: BRENDA GHOTRA : 1980 SEX: M STUDY DATE/TIME: 04/05/2017 5:05 UNIT: [facility] ROOM: [facility] STUDY DESCRIPTION: CR Chest Single View Portable Attending Physician: Sebastien Wood M.D. Referring Physician: Sebastien Wood M.D. Ordering Physician: Vikash Davila M.D. Primary Care Physician: No Primary Care Physician MEDICAL IMAGING REPORT This report is preliminary unless electronic signature is present EXAM Single view chest. INDICATION Respiratory failure. Shortness of air. FINDINGS Single, portable, AP view chest compared to 04/03/2017. The enteric tube has been removed in the interval. Right PICC and a tracheostomy tube remain in place. Perihilar predominate airspace opacities are similar to the prior study. There is slight increased density in the left lung base. No pneumothorax. IMPRESSION Increasing density in the left lung base. Dictated by... Bryant Peck M.D. THIS IS AN ELECTRONICALLY VERIFIED REPORT Bryant Peck M.D. at 04/05/2017 11:14 PM NAIF/satish TD: 04/05/2017 08:46 JOB #: [id number] MEDICAL IMAGING REPORT Page 1 of 1 COPY
--- NOTE | ~2017-03-23 | CR72 ---
[facility] A Service of [facility] & [facility] RADIOLOGY TEXT RESULTS PATIENT: BRENDA GHOTRA LOCATION: [address] : [birth year] UNIT #: [id number] AGE: [address]: Vikash Davila MD SEX: M ORDER DR: [id number] [facility] [address] [facility]. [place], [place] [address] [id number] I MR#: [id number] Acc #: [id number] NAME: BRENDA GHOTRA : 1980 SEX: M STUDY DATE/TIME: 04/06/2017 5:39 UNIT: [facility] ROOM: [facility] STUDY DESCRIPTION: CR Chest Single View Portable Attending Physician: Sebastien Wood M.D. Referring Physician: Sebastien Wood M.D. Ordering Physician: Ada Shell M.D. Primary Care Physician: No Primary Care Physician MEDICAL IMAGING REPORT This report is preliminary unless electronic signature is present EXAM Portable chest, 04/06/2017. HISTORY Respiratory failure for 14 days. Shortness of breath. COMPARISON Chest, 04/05/2017. FINDINGS Frontal chest demonstrates tubes and lines in stable position. No pneumothorax. Low lung volumes are unchanged. Patchy bilateral pulmonary infiltrates are unchanged. Heart size and mediastinum are stable. IMPRESSION 1. Tubes and lines stable. No pneumothorax. 2. No change in low lung volumes and patchy bilateral pulmonary infiltrates. Dictated by... Bridger Randall M.D. THIS IS AN ELECTRONICALLY VERIFIED REPORT Bridger Randall M.D. at 04/07/2017 8:52 AM LOVE/satish TD: 04/06/2017 07:26 JOB #: [id number] MEDICAL IMAGING REPORT Page 1 of 1 COPY
--- NOTE | ~2017-03-23 | CR72 ---
[facility] A Service of [facility] RADIOLOGY TEXT RESULTS PATIENT: BRENDA GHOTRA LOCATION: [address] : [birth year] UNIT #: [id number] AGE: [address]: Sebastien Wood MD SEX: M ORDER DR: [id number] [facility] [address] [facility]. [place], [place] [address] [id number] I MR#: [id number] Acc #: [id number] NAME: BRENDA GHOTRA : 1980 SEX: M STUDY DATE/TIME: 03/31/2017 0341 UNIT: [facility] ROOM: [facility] STUDY DESCRIPTION: CR Chest Single View Portable Attending Physician: Sebastien Wood M.D. Referring Physician: Sebastien Wood M.D. Ordering Physician: Sebastien Wood M.D. Primary Care Physician: No Primary Care Physician MEDICAL IMAGING REPORT This report is preliminary unless electronic signature is present EXAM Portable chest, 03/31 at 0341. INDICATION Respiratory failure. Shortness of air. FINDINGS AP portable chest compared with 03/30/2017. ET tube and left IJ line are in good position. Lung volumes remain low. Bilateral infiltrates are essentially stable as are trace effusions. No pneumothorax. Dictated by... Ronny Villaseñor Jr., M.D. THIS IS AN ELECTRONICALLY VERIFIED REPORT Ronny Villaseñor Jr., M.D. at 03/31/2017 5:19 PM FRANKLIN/satish TD: 03/31/2017 10:58 JOB #: [id number] MEDICAL IMAGING REPORT Page 1 of 1 COPY
--- NOTE | ~2017-03-23 | CO ---
Unit #: [id number] #: [id number] Patient: LUANN GHOTRA [id number] [address] [place], [place] [address] [id number] I MR#: [id number] NAME: LUANN GHOTRA ROOM: [facility] Age: 36 Sex: M Admission Date: 03/23/2017 : 1980 Attending Physician: Vikash Davila M.D. Primary Care Physician: Primary Care Physician No Consultation Date: 04/08/2017 CONSULTATION REPORT REASON FOR CONSULTATION Followup. DISCUSSION Mr. Luann Ghotra is a 36-year-old white male, seen in CCU 3, bed 21 on 04/08/2017 at [facility]. The patient is currently ventilated through trach, did not require any restraint today, but still not able to respond to verbal commands. The patient is still somewhat guarded, withdrawn, flat, confused, unable to give any reliable information, still needing sedation due to aggression. The patient will start with tube feeding. The patient's vital signs are pulse of 112, temperature 100.4, respirations 24, blood pressure 148/88, oxygen saturation 95%. REVIEW OF SYSTEMS Complete review of systems is unremarkable except as mentioned above. MENTAL STATUS EXAMINATION VITAL SIGNS: Please see above. GENERAL APPEARANCE: The patient dressed in hospital attire, lying comfortably in bed, seemed somewhat anxious, unable to give any reliable information. Breathing through trach. No seclusion or restraint. Attention span and concentration, poor. Speech, unable to assess. Orientation, unable to assess. Mood and affect, flat. Thought process and thought content, unable to assess. Recent and remote memory, language, and fund of knowledge, unable to assess. Insight and judgment, impaired. DIAGNOSES Psychiatric: Delirium, F05; alcohol use disorder, severe, F10.20. ASSESSMENT AND PLAN Advised to continue with current medication combination. We will continue to follow. If needed, consider further adjustment of medication. The patient is currently on Reglan, furosemide, Lovenox, and Ativan as per [facility] protocol. The patient is also on Klor-Con, propofol IV. Precedex was discontinued. The patient is also on haloperidol and Cogentin q.8 hourly. Please feel free to call if any questions, telephone # . Dictated by... Lopez Rainey M.D. Unit #: [id number] #: [id number] Patient: LUANN GHOTRA VAL/sera TD: 04/08/2017 22:36 JOB #: [id number] CONSULTATION REPORT Page 1 of 1 X Lopez Rainey MD CONSULTATION REPORT
--- NOTE | ~2017-03-23 | CR72 ---
[facility] A Service of [facility] RADIOLOGY TEXT RESULTS PATIENT: BRENDA GHOTRA LOCATION: [facility] : [birth year] UNIT #: [id number] AGE: [address]: Sebastien Wood MD SEX: M ORDER DR: [id number] [place] [id number] [facility]. [place], [place] [address] [id number] I MR#: [id number] Acc #: [id number] NAME: BRENDA GHOTRA : 1980 SEX: M STUDY DATE/TIME: 04/05/2017 9:48 UNIT: [facility] ROOM: [facility] STUDY DESCRIPTION: CR Chest Single View Portable Attending Physician: Sebastien Wood M.D. Referring Physician: Sebastien Wood M.D. Ordering Physician: Elie Linda M.D. MEDICAL IMAGING REPORT This report is preliminary unless electronic signature is present EXAM Portable chest 04/05/2017 HISTORY 36-year-old male with shortness of air and respiratory failure since 03/23/2017. COMPARISON STUDIES Chest 04/05/2017 at 0505 hours. FINDINGS Frontal chest demonstrates tubes and lines in stable position. No visible pneumothorax. Low lung volumes. No change in patchy infiltrates throughout both lungs. Heart size and mediastinum are stable. IMPRESSION 1. Tubes and lines appear stable. No visible pneumothorax. 2. No change in low lung volumes and patchy infiltrates throughout both lungs. Dictated by... Bridger Randall M.D. THIS IS AN ELECTRONICALLY VERIFIED REPORT Bridger Randall M.D. at 04/06/2017 6:21 AM LOVE/mahamed TD: 04/05/2017 10:11 JOB #: [id number] MEDICAL IMAGING REPORT [facility] A Service [facility] RADIOLOGY TEXT RESULTS PATIENT: BRENDA GHOTRA LOCATION: [address] : [birth year] UNIT #: [id number] AGE: [address]: Sebastien Wood MD SEX: M ORDER DR: Page 1 of 1 COPY
--- NOTE | ~2017-03-23 | CR72 ---
[facility] A Service of [facility] RADIOLOGY TEXT RESULTS PATIENT: BRENDA GHOTRA LOCATION: [address] : [birth year] UNIT #: [id number] AGE: [address]: Sebastien Wood MD SEX: M ORDER DR: [id number] [facility] [address] [facility]. [place], [place] [address] [id number] I MR#: [id number] Acc #: [id number] NAME: BRENDA GHOTRA : 1980 SEX: M STUDY DATE/TIME: 04/02/2017 16:34 UNIT: [facility] ROOM: [facility] STUDY DESCRIPTION: CR Chest Single View Portable Attending Physician: Sebastien Wood M.D. Referring Physician: Sebastien Wood M.D. Ordering Physician: Ada Shell M.D. Primary Care Physician: No Primary Care Physician MEDICAL IMAGING REPORT This report is preliminary unless electronic signature is present EXAM Single view chest INDICATIONS Tracheostomy placement. Shortness of air. FINDINGS Single portable AP view of the chest compared to 04/01/2017. The endotracheal tube has been replaced with a tracheostomy tube. The tip of the tracheostomy is 3 cm above the brenda. The enteric tube and left IJ central line remain in place. Heart and mediastinal contours are unchanged. Perihilar and lower lobe predominant airspace opacities are similar to the prior exam. No pneumothorax. IMPRESSION Interval exchange of the endotracheal tube for a tracheostomy tube. No pneumothorax. Dictated by... Bryant Peck M.D. THIS IS AN ELECTRONICALLY VERIFIED REPORT Bryant Peck M.D. at 04/02/2017 9:45 PM RPC/kiki TD: 04/02/2017 17:50 JOB #: [id number] MEDICAL IMAGING REPORT Page 1 of 1 COPY
--- NOTE | ~2017-03-23 | CO ---
Unit #: [id number] #: [id number] Patient: LUANN MIKE [id number] [address] [address] [id number] I MR#: [id number] NAME: LUANN MIKE ROOM: [facility] Age: 36 Sex: M Admission Date: 03/23/2017 : 1980 Attending Physician: Sebastien Wood M.D. Primary Care Physician: No Primary Care Physician Consultation Date: 03/26/2017 CONSULTATION REPORT REASON FOR CONSULTATION Alcohol withdrawal, delirium. HISTORY OF PRESENT ILLNESS Mr. Luann Mike is a 36-year-old white male seen in CCU bed-21 at [facility] on 03/26/17. Patient was intubated but still very agitated. Patient is currently on IV propofol, sedated in Intensive Care Unit. Recently started Seroquel, gradually to withdraw this medication. Patient was unable to give any information, currently having withdrawal symptoms. Patient was transferred from [facility] when he was having a complicated alcohol withdrawal. The patient was intubated in emergency room. Patient's family was at the bedside, patient's and patient's mother, who reported that patient has a longstanding history of alcohol abuse and drinking on a daily basis a large amount. They denied any history of any IV drug use or any other street drugs. Vital signs - 98.5, 109, 16, 131/64. Oxygen saturation 98%. PAST PSYCHIATRIC HISTORY Remarkable for recent assessment at [facility] for alcohol problems but never been detox'd or any inpatient or outpatient treatment. MEDICAL HISTORY AND MEDICATION HISTORY Medical history is remarkable for: 1. History of gastroesophageal reflux disease . 2. History of alcohol abuse. 3. Genital herpes. Medications: 1. Ativan. 2. Geodon. 3. Haldol. 4. Thiamine. 5. Folic acid. 6. Vitamin B12. 7. Multiple vitamin. 8. Protonix. While in the hospital he is gettin. Seroquel 25 mg b.i.d. 2. Valium 5 mg three times a day. 3. Versed. ALLERGIES Unit #: [id number] #: [id number] Patient: MIKE,LUANN Penicillin. FAMILY HISTORY/SOCIAL HISTORY The patient has a good support system from family. History of alcohol abuse. No history of any abuse. REVIEW OF SYSTEMS Complete review of systems is unremarkable except as mentioned above, agitation. MENTAL STATUS EXAMINATION VITAL SIGNS: Please see above. GENERAL APPEARANCE: Patient dressed in hospital attire, lying down in bed in ICU, intubated, unable to give any coherent history but agitation. Attention span and concentration poor. Speech - unable to talk at this time. Orientation - unable to assess. Mood and affect labile. Thought process/thought content - patient agitated. Recent and remote memory unable to assess. Language - unable to assess. Fund of knowledge - unable to assess. Insight and judgment - unable to assess. DIAGNOSIS PSYCHIATRIC: Alcohol use disorder, severe - F10.20 Delirium - F05 SECONDARY DIAGNOSIS Deferred. MEDICAL DIAGNOSIS Please refer to H and P. STRESSORS Psychosocial stressors. ASSESSMENT/PLAN 1. Supportive psychotherapy and psychoeducation provided to patient. 2. Educated about benefits and side effects of medications and course and prognosis of illness. 3. Recommending at this time to replace Seroquel and Valium with Haldol 5 mg three times a day, Cogentin 1 mg three times a day and Ativan 1 mg three times a day. If needed, consider further additional medication. Please feel free to call if any questions. Telephone number [phone]. Dictated by... Julianne Kwon/edgar TD: 03/27/2017 07:09 JOB #: [id number] Unit #: [id number] #: [id number] Patient: LUANN MIKE CONSULTATION REPORT Page 1 of 1 X Lopez Rainey MD CONSULTATION REPORT
--- NOTE | ~2017-03-23 | CR72 ---
[facility] A Service of [facility] RADIOLOGY TEXT RESULTS PATIENT: BRENDA GHOTRA LOCATION: [address] : [birth year] UNIT #: [id number] AGE: [address]: Sebastien Wood MD SEX: M ORDER DR: [id number] [facility] [address] [facility]. [place], [place] [address] [id number] I MR#: [id number] Acc #: [id number] NAME: BRENDA GHOTRA : 1980 SEX: M STUDY DATE/TIME: 03/30/2017 05:16 UNIT: [facility] ROOM: [facility] STUDY DESCRIPTION: CR Chest Single View Portable Attending Physician: Sebastien Wood M.D. Referring Physician: Sebastien Wood M.D. Ordering Physician: Ada Shell M.D. Primary Care Physician: Primary Care Physician No MEDICAL IMAGING REPORT This report is preliminary unless electronic signature is present EXAM Portable chest, 03/30 at 05:16 INDICATIONS Respiratory failure. Alcohol withdrawal. FINDINGS AP portable chest compared with 03/29/2017. Tubes and lines are unchanged. Lung volumes remain quite low. Diffuse bilateral infiltrates, left worse than right, are stable and probably reflect pneumonia. Small left effusion is unchanged. No pneumothorax. Dictated by... Ronny Villaseñor Jr., M.D. THIS IS AN ELECTRONICALLY VERIFIED REPORT Ronny Villaseñor Jr., M.D. at 03/31/2017 5:23 AM RLK/contreras TD: 03/30/2017 21:40 JOB #: [id number] MEDICAL IMAGING REPORT Page 1 of 1 COPY
--- NOTE | ~2017-03-23 | EKG ---
PATIENT: BRENDA GHOTRA UNIT #: [id number] Ventricular Rate: 105 BPM Atrial Rate: 105 BPM P-R Interval: 142 ms QRS Duration: 86 ms Q-T Interval: 370 ms QTC Calculation(Bezet): 489 ms P Whately: 32 degrees Calculated R Whately: -7 degrees Calculated T Whately: 3 degrees Diagnosis Line: Sinus tachycardia Diagnosis Line: Voltage criteria for left ventricular hypertrophy Diagnosis Line: Abnormal ECG Diagnosis Line: No previous ECGs available Diagnosis Line: Confirmed by SUMAYA BAI MD ([id number]) on 03/23/2017 Diagnosis Line: 4:11:54 PM INTERPRETING MD: BHUMIKA MURCIA
--- NOTE | ~2017-03-23 | FU ---
[facility] Nutrition Therapy DATE: 04/08/17 Patient: BRENDA GHOTRA Physician: SHAUN Address: [address] [facility] Room/Bed: [address], Zip: [place] [address] Admit Date: 03/23/17 Date of : [birth year] Height: 5 6 Weight: 212 96.5 NUTRITION MONITORING/FOLLOW-UP: Reason: Enteral nutrition follow-up Admitting Dx: 36 y/o male admitted from [facility] with acute respiratory failure, ELLEN PNA, ETOH detox, now s/p trach/PEG Anthropometrics: Ht: 66", admission wt: 75 kg, current wt: 96.5 kg (has been trending up since admission, note abdominal distension and edema), BMI: 26.6 (overweight; based on admission wt) Labs: AST 124, ALT 50, Na/K/Mg/glucose/BUN/Creatinine WNL, no Phos or glucose POC being monitored Meds: Furosemide, Reglan (added 04/07), Prostat TID, Propofol @ 10.3 ml/hr (272 lipid kcals), Miralax, Milk of Mg, Loperamide, PPI, Zofran/phenergan prn, Fentanyl, Vitamin B12, MVI, Thiamine, Folic acid I&O's: 3127/3650, last BM 04/06 (x1, small), abdomen distended/firm Skin: Trach/PEG sites, generalized-2+ edema noted Re-estimated Nutrition Needs: 1787-9518 kcals per day (20-25 kcals/kg based on admission wt) 75-90 g protein per day (1.0-1.2 g/kg based on admission wt) ~2000 ml/day fluids or per MD Assessment: Chart reviewed, events noted. See re-estimated kcal needs as stated above. Note weight has been trending up since admission, current weight is ~20kg more than admission weight, abdominal distension and edema noted. Patient has had issues with constipation throughout hospital course, had BM on 03/24, 03/28, and 04/06. Bowel regimen was started on 04/02 however he has not been getting free water per nursing. Recommended adding free water and continuing bowel regimen, nursing agreed. Jevity 1.5 is running @ 30 ml/hr and he is receiving Prostat TID and Propofol @ 10.3 ml/hr providing 272 lipid kcals. During my last f/u on 04/03 I recommended a goal rate of 45 ml/hr and decreasing Prostat to once daily, however his feeds have been off and on due to PEG placed on 04/04 and then high residuals afterwards. Feeds were off 4 hours yesterday due to 500 ml GRV, when checked again twice he had 0 GRV. 150 ml GRV noted this morning. See new recs based on re-estimated kcal needs. Propofol rate is the same as it was at my last f/u. Of note, he received 60% goal volume the past 24 hours per pump history. Plan is to go to [place]. See nutrition goals, dx and recs as stated below. Will write order for new EN regimen and make nursing aware. Will continue to follow. [facility] Nutrition Therapy DATE: 04/08/17 Patient: BRENDA GHOTRA Physician: SHAUN Address: [address] [place] [address] Room/Bed: [address], Zip: [place] [address] Admit Date: 03/23/17 Date of : [birth year] Height: 5 6 Weight: 212 96.5 Dx: 1) Inadequate enteral nutrition infusion r/t possible PEG placement AEB EN on hold - RESOLVED/NO LONGER RELEVANT 2) Unintentional weight loss r/t ETOH abuse AEB patient/mother report - RESOLVED (note weight trending up, BMI overweight) New nutrition diagnoses: 1) Inadequate enteral nutrition infusion r/t EN not at goal rate AEB patient received 60% goal volume x 24 hours. 2) Altered GI function r/t clincal condition AEB 3 BM's since admission, need for addition of free water and bowel regimen/Reglan, abdominal distension. Intervention: Add free water, bowel regimen per MD, increase feeds to 40 ml/hr and decrease Prostat Monitoring, Evaluation and Goals: 1. EN to provide > 80% goal volume x 24 hours - NOT MET (received 60% goal volume x 24 hours) 2. Labs WNL - IN PROGRESS (AST/ALT remain elevated, glucose/lytes WNL) 3. Prevent unintentional weight loss - MET (weight gain noted) 4. Promote regular BM's - IN PROGRESS (3 BM's since admission) Revised nutrition goals: 1. EN to provide > 80% goal volume x 24 hours. 2. Glucose, lytes will remain WNL. 3. Promote regular BM's, minimize abdominal distension. Monitor: Per protocol, criteria to determine if above goals met Recommendations: 1. Increase Jevity 1.5 to 40 ml/hr (goal rate with Propofol) and decrease Prostat to 30 ml daily per PEG tube. This nutrition regimen + kcals from Propofol will provide 1812 kcals, 76 g protein and 730 ml water. *ADD FREE WATER FLUSHES OF 175 ML Q 4 HOURS AND HOLD ANY LIQUID IVF TO HELP PROMOTE REGULAR BOWEL MOVEMENTS 2. Continue bowel regimen and Reglan per MD. 3. If Propofol is D/C increase Jevity 1.5 to new goal rate of 50 ml/hr and discontinue Prostat. [facility] Nutrition Therapy DATE: 04/08/17 Patient: BRENDA BRANDIN Physician: SHAUN Address: [address] [place] [address] Room/Bed: [address], Zip: [place] [address] Admit Date: 03/23/17 Date of : [birth year] Height: 5 6 Weight: 212 96.5 4. Please weigh q 3 days for monitoring purposes. Status: Moderate nutrition risk Respectfully, Nakia Garcia RD, [facility] [employer] [facility] cc: client file
--- NOTE | ~2017-03-23 | CR72 ---
[facility] A Service of [facility] RADIOLOGY TEXT RESULTS PATIENT: BRENDA GHOTRA LOCATION: [address] : 82 UNIT #: [id number] AGE: [address]: Sebastien Wood MD SEX: M ORDER DR: [id number] [facility] [address] [facility]. [place], [place] [address] [id number] I MR#: [id number] Acc #: [id number] NAME: BRENDA GHOTRA : 1980 SEX: M STUDY DATE/TIME: 03/24/2017 13:30 UNIT: [facility] ROOM: [facility] STUDY DESCRIPTION: CR Chest Single View Portable Attending Physician: Pérez Coy M.D. Referring Physician: Sebastien Wood M.D. Ordering Physician: Physician Non-Staff Primary Care Physician: Primary Care Physician No MEDICAL IMAGING REPORT This report is preliminary unless electronic signature is present EXAM Portable chest x-ray, 03/24/2017 HISTORY Intubation. FINDINGS AP radiograph of the chest is presented. Comparison 03/23/2017. Endotracheal tube terminates 1.6 cm above the brenda. It extends slightly more distally into the trachea than on the prior examination. For placement in mid thoracic trachea, it could be withdrawn about 1.0 cm and reassessed radiographically. There is an enteric tube which extends below the diaphragm and off the field of the radiograph. Heart shows stable mild enlargement. Lung volumes remain low. Central bronchovascular crowding. Prominence of the central vasculature likely reflects in part the low lung volumes and in part mild central vascular congestion. Infrahilar air space disease bilaterally, left greater than right. Similar appearance on prior examination. Consider components of infrahilar atelectasis and bibasilar pneumonitis. Patchy densities at the left lung base laterally with similar differential diagnosis. There is no definite pleural effusion and no pneumothorax. Dictated by... Tae Schumacher M.D. THIS IS AN ELECTRONICALLY VERIFIED REPORT Tae Schumacher M.D. at 03/25/2017 6:08 PM Michelle TD: 03/24/2017 15:10 JOB #: [id number] [facility] A Service of [facility] RADIOLOGY TEXT RESULTS PATIENT: BRENDA GHOTRA LOCATION: [facility]3-21 : [birth year] UNIT #: [id number] AGE: [address]: Sebastien Wood MD SEX: M ORDER DR: MEDICAL IMAGING REPORT Page 1 of 1 COPY
--- NOTE | ~2017-03-23 | CR72 ---
[facility] A Service of [facility] RADIOLOGY TEXT RESULTS PATIENT: BRENDA GHOTRA LOCATION: [address] : [birth year] UNIT #: [id number] AGE: [address]: Sebastien Wood MD SEX: M ORDER DR: [id number] [place] [id number] [facility]. [place], [place] [address] [id number] I MR#: [id number] Acc #: [id number] NAME: BRENDA GHOTRA : 1980 SEX: M STUDY DATE/TIME: 03/26/2017 4:15 UNIT: [facility] ROOM: [facility] STUDY DESCRIPTION: CR Chest Single View Portable Attending Physician: Sebastien Wood M.D. Referring Physician: Sebastien Wood M.D. Ordering Physician: Ada Shell M.D. Primary Care Physician: No Primary Care Physician MEDICAL IMAGING REPORT This report is preliminary unless electronic signature is present EXAM Portable chest HISTORY EtOH withdrawals respiratory failure. COMPARISON 03/25/2017 FINDINGS Tubes and lines remain in satisfactory position. Continued left upper lobe airspace opacity most likely represents acute infectious pneumonia possibly representing a aspiration pneumonia. Continued right basilar atelectasis. No sizeable effusions. No pneumothorax. Dictated by... Jc Garcia M.D. THIS IS AN ELECTRONICALLY VERIFIED REPORT Jc Garcia M.D. at 03/26/2017 10:33 PM DAVID/kiki TD: 03/26/2017 04:57 JOB #: [id number] MEDICAL IMAGING REPORT Page 1 of 1 COPY
--- NOTE | ~2017-03-23 | CR72 ---
[facility] A Service of [facility] RADIOLOGY TEXT RESULTS PATIENT: BRENDA GHOTRA LOCATION: [address] : [birth year] UNIT #: [id number] AGE: [address]: Sebastien Wood MD SEX: M ORDER DR: [id number] [facility] [address] [facility] [place] [facility]. [place], [place] [address] [id number] I MR#: [id number] Acc #: [id number] NAME: BRENDA GHOTRA : 1980 SEX: M STUDY DATE/TIME: 04/01/2017 05:32 UNIT: [facility] ROOM: [facility] STUDY DESCRIPTION: CR Chest Single View Portable Attending Physician: Sebastien Wood M.D. Referring Physician: Sebastien Wood M.D. Ordering Physician: Talia Mansfield M.D. Primary Care Physician: Primary Care Physician No MEDICAL IMAGING REPORT This report is preliminary unless electronic signature is present EXAM Portable chest, 04/01 at 05:32 hours INDICATION Respiratory failure FINDINGS AP portable chest is compared with 03/31/2017. Tubes and lines are unchanged and well positioned. Lung volumes remain low. There is increasing atelectasis or infiltrate in the right lung base. Mild patchy infiltrates in both lungs are otherwise stable. No pneumothorax. Dictated by... Ronny Villaseñor Jr., M.D. THIS IS AN ELECTRONICALLY VERIFIED REPORT Ronny Villaseñor Jr., M.D. at 04/02/2017 5:53 AM FRANKLIN/gordo TD: 04/01/2017 08:10 JOB #: [id number] MEDICAL IMAGING REPORT Page 1 of 1 COPY
--- NOTE | ~2017-03-23 | DS ---
Unit #: [id number] #: [id number] Patient: BRENDA GHOTRA [id number] [address] [place], [place] [address] [id number] I MR#: [id number] NAME: BRENDA GHOTRA ROOM: [facility] Age: 36 Sex: M Admission Date: 03/23/2017 : 1980 Discharge Date: 04/08/2017 Attending Physician: Vikash Davila M.D. Referring Physician: Sebastien Wood M.D. Primary Care Physician: No Primary Care Physician DISCHARGE SUMMARY ADMITTING DIAGNOSES 1. Acute respiratory failure. 2. Alcohol withdrawal. DISCHARGE DIAGNOSES 1. Acute respiratory failure. 2. Alcohol withdrawal. 3. Possible aspiration pneumonia. CONSULTANTS 1. Dr. Shell. 2. Dr. Pancho Fragoso. 3. Dr. Rainey. PROCEDURES DONE Status post trach and PEG. HISTORY OF PRESENTING ILLNESS Patient is a 36-year-old man who was transferred from [facility] for alcohol withdrawal. In the emergency room he was combative. He was intubated. HOSPITAL COURSE He was difficult to be weaned off the ventilator. He was seen by Pulmonary. He had bronchoscopies. Cultures were all negative. He ended up getting intubated and ended up getting a trach and PEG. I spoke with his mother this afternoon. She is agreeable for transferring to the [place]. He is difficult to be weaned and is getting transferred to the [place] under Dr. Shell's service for further care. Kindly note he is allergic to penicillin. He started on vancomycin for superficial thrombophlebitis. He is also on Rocephin and Flagyl for possible aspiration pneumonia. He needs both these antimicrobials for a week more. PHYSICAL EXAMINATION ON THE DAY OF DISCHARGE VITAL SIGNS: Temperature 100, pulse rate 94, respirations 24, blood pressure 123/58. GENERAL: Patient is nonverbal, sedated. HEENT: Normocephalic and atraumatic. No icterus. PERRLA. Extraocular muscles intact. NECK: Neck is supple. No JVD. HEART: S1, S2, regular rate and rhythm. CHEST: Bilateral equal entry, clear to auscultation. ABDOMEN: Soft, nontender. He has a PEG tube in place. Unit #: [id number] #: [id number] Patient: BRENDA GHOTRA EXTREMITIES: Mild edema. DISCHARGE MEDICATIONS His discharge medications include: 1. Combivent 3 mL nebulization q.6 h. p.r.n. 2. Tylenol p.r.n. 3. Lovenox 40 mg subcu daily. 4. Trazodone 50 mg q.h.s. 5. Loperamide p.r.n. 6. Zofran 4 mg q.4 h. p.r.n. 7. Phenergan 25 q.6 h. p.r.n. nausea and vomiting. 8. Bentyl 10 mg t.i.d. 9. Cogentin 1 mg p.o. q.8 h. 10. Haldol 5 mg p.o. q.8 h. 11. Diazepam 10 mg p.r.n. for seizures. 12. Ativan p.r.n. 13. Colace p.r.n. 14. Milk of magnesia 30 mL p.r.n. 15. MiraLAX 17 grams q.a.m. 16. Lasix 40 mg IV b.i.d. 17. Robitussin 10 mg p.r.n. for cough. 18. Multivitamin one capsule p.o. per PEG. 19. Reglan 10 mg IV q.8 h. p.r.n. 20. Zinc sulfate 220 mg per PEG daily. 21. Protonix 40 mg IV daily. 22. Folic acid 1 mg daily. 23. Thiamine 100 mg daily. 24. Cyanocobalamin 1000 mcg p.o. daily. 25. Vancomycin 1500 mg IV q.12 h. Pharmacy to dose for one more week. 26. Rocephin 1 g IV daily for a week. 27. Flagyl 500 mg IV q.8 h. for a week. DISPOSITION Patient will be discharged to [place] for further care under Dr. Shell's service. Total time spent in his care 35 minutes. Dictated by..Gilles Davila M.D. NADINE/gary TD: 04/08/2017 16:31 JOB #: [id number] Unit #: [id number] #: [id number] Patient: BRENDA GHOTRA DISCHARGE SUMMARY Page 1 of 1 X X DISCHARGE SUMMARY
--- NOTE | ~2017-03-23 | OR ---
Unit #: [id number] #: [id number] Patient: BRENDA GHOTRA [id number] [address] [address] [id number] I MR#: [id number] NAME: BRENDA GHOTRA ROOM: [facility] Date of Procedure: 03/26/2017 Admission Date: 03/23/2017 Surgeon: Ada Shell M.D. : 1980 Attending Physician: Sebastien Wood M.D. Primary Care Physician: No Primary Care Physician PROCEDURE OPERATIVE NOTE PREOPERATIVE DIAGNOSIS Pneumonia. POSTOPERATIVE DIAGNOSIS Pneumonia. PROCEDURE PERFORMED Diagnostic bronchoscopy, bronchoalveolar lavage. INDICATION Pneumonia. DETAIL OF PROCEDURE After placing patient in proper position, bronchoscope introduced through the endotracheal tube, which was sitting well above the brenda. We examined the right upper, right middle, right lower lobe, left upper lobe, lingula, left lower lobe. No endobronchial lesion was found. There were thick mucoid secretions in both lungs, which were therapeutically suctioned and then we did a bronchioalveolar lavage in the left upper lobe area with 80 mL of saline and 30 mL back. The patient tolerated the procedure very well. No complication happened. Dictated by... Julianne Dorantes/anjelica TD: 03/26/2017 09:11 JOB #: [id number] PROCEDURE OPERATIVE NOTE Page 1 of 1 X Ada Shell MD X PROCEDURE OPERATIVE NOTE
--- NOTE | ~2017-03-23 | HP ---
Unit #: [id number] #: [id number] Patient: BRENDA GHOTRA [id number] [address] [address] [id number] I MR#: [id number] NAME: BRENDA GHOTRA ROOM: [facility] Age: 36 Sex: M Admission Date: 03/23/2017 : 1980 Attending Physician: Pérez Coy M.D. Referring Physician: Sebastien Wood M.D. Primary Care Physician: No Primary Care Physician HISTORY AND PHYSICAL DIAGNOSES ON ADMISSION 1. Acute respiratory failure. 2. Alcohol withdrawal. HISTORY OF PRESENT ILLNESS A 36-year-old male was transferred from [facility] for medical clearance for alcohol withdrawal. Patient is currently intubated and not able to provide history. Patient was apparently intubated in the ER and therefore, we are not able to obtain history. As per the ER notes, the patient was combative and agitated and was having alcohol withdrawal. Therefore, patient required intubation. Unfortunately, no family member is present. Currently, I have tried to call family member but not able to reach. REVIEW OF SYSTEMS Unable to obtain review of systems. Patient was transferred to intensive care unit and he is on IV propofol currently and sedated. PAST MEDICAL HISTORY As per records, is only gastroesophageal reflux disease and history of alcohol abuse and genital herpes. PAST SURGICAL HISTORY None. ALLERGIES Penicillin. HOME MEDICATIONS As per ER sheet are: 1. Ativan. 2. Geodon. 3. Haldol. 4. Thiamine. 5. Folic acid. 6. Vitamin B12. 7. Multivitamins. 8. Protonix. SOCIAL HISTORY As per ER sheet, patient drinks alcohol and smokes one pack of cigarette per day. FAMILY HISTORY Unit #: [id number] #: [id number] Patient: BRENDA GHOTRA Unable to obtain. PHYSICAL EXAMINATION GENERAL: Patient is lying in bed, is sedated. VITAL SIGNS: His vital signs reveal temperature of 99 degrees, pulse is 96 per minute, respiratory rate is 18 per minute, blood pressure is 150/98. HEENT: Revealed no conjunctival congestion. Sclerae is nonicteric. NECK: Supple. Trachea is central. RESPIRATORY: Revealed decreased breath sounds bilaterally. There are no wheezes or crackles. HEART: Regular rate and rhythm. S1, S2. ABDOMEN: Soft, nontender. Bowel sounds are present. EXTREMITIES: Reveal trace pedal edema. SKIN: Warm and dry. NEUROLOGIC: The patient is sedated, not able to follow commands. DIAGNOSTIC STUDIES LABORATORY: Labs on admission: The patient's ABG revealed pH of 7.38, pO2 was 40, pO2 was 227, FIO2 was 50. Creatinine 0.5, sodium 139, potassium 3.1. WBC 7.4, hemoglobin 13.2, platelet count 74,000. Patient's AST was 240, ALT 69. Serum alcohol level was less than 5. IMAGING: Chest x-ray revealed no focal infiltrates. CARDIOVASCULAR: EKG revealed sinus tachycardia with heart rate of 105. ASSESSMENT AND PLAN A 36-year-old male was admitted to the hospital from [facility] with alcohol withdrawal. 1. Alcohol withdrawal: The patient is on CIWA protocol. 2. Acute respiratory failure: Patient was aggressive, combative, and was intubated in the emergency room. Dr. Shell will see him in consultation. Currently, he is on sedation. Patient was intubated because of being aggressive. His pulse oximetry was 95% on room air on arrival to the emergency room. 3. Patient is on Protonix for gastrointestinal prophylaxis and will start Lovenox for deep venous thrombosis prophylaxis. Dictated by Julianne Rodriguez/peace TD: 03/23/2017 12:47 JOB #: [id number] Unit #: [id number] #: [id number] Patient: BRENDA GHOTRA HISTORY AND PHYSICAL Page 1 of 1 X Pérez Coy MD X HISTORY AND PHYSICAL
--- NOTE | ~2017-03-23 | CR72 ---
[facility] A Service of [facility] RADIOLOGY TEXT RESULTS PATIENT: BRENDA GHOTRA LOCATION: [address] : [birth year] UNIT #: [id number] AGE: [address]: Sebastien Wood MD SEX: M ORDER DR: [id number] [place] [id number] [facility] [place], [place] [address] [id number] I MR#: [id number] Acc #: [id number] NAME: BRENDA GHOTRA : 1980 SEX: M STUDY DATE/TIME: 03/28/2017 5:53 UNIT: [facility] ROOM: [facility] STUDY DESCRIPTION: CR Chest Single View Portable Attending Physician: Sebastien Wood M.D. Referring Physician: Sebastien Wood M.D. Ordering Physician: Ada Shell M.D. Primary Care Physician: Primary Care Physician No MEDICAL IMAGING REPORT This report is preliminary unless electronic signature is present EXAM Portable chest, 03/28/2017 COMPARISON 03/27/2017 HISTORY Respiratory failure FINDINGS ET tube remains in place tip 3.0 cm above the brenda. Coarse diffuse left lung infiltrate and mild right lung interstitial infiltrate remain though there may be slight improvement in aeration in the right lung. There is no pneumothorax. Left IJ central line and feeding tube remain in place. Dictated by... Vijay High M.D. THIS IS AN ELECTRONICALLY VERIFIED REPORT Vijay High M.D. at 03/28/2017 3:53 PM DORIAN/gordo TD: 03/28/2017 08:05 JOB #: [id number] MEDICAL IMAGING REPORT Page 1 of 1 COPY
--- NOTE | ~2017-03-23 | CR72 ---
[facility] A Service of [facility] RADIOLOGY TEXT RESULTS PATIENT: BRENDA GHOTRA LOCATION: [facility] : [birth year] UNIT #: [id number] AGE: [address]: Sebastien Wood MD SEX: M ORDER DR: [id number] [place] [address] [place], [place] [address] [id number] I MR#: [id number] Acc #: [id number] NAME: BRENDA GHTORA : 1980 SEX: M STUDY DATE/TIME: 03/27/2017 13:03 UNIT: [facility] ROOM: [facility] STUDY DESCRIPTION: CR Chest Single View Portable Attending Physician: Sebastien Wood M.D. Referring Physician: Sebastien Wood M.D. Ordering Physician: Ada Shell M.D. MEDICAL IMAGING REPORT This report is preliminary unless electronic signature is present EXAM Portable chest 1 view 03/27/2017 at 13:03 COMPARISON STUDIES 03/26/2017. HISTORY Short of air for 4 days. FINDINGS ET tube present, tip 3-4 cm above the brenda. Persistent extensive left lung infiltrate and lesser right side infiltrate with slight improved aeration in the right upper lung with persistent right mid- to lower lung atelectasis versus infiltrate. No new abnormality. No effusion or pneumothorax. Feeding tube present, tip not seen. Left IJ central line remains in place. Dictated by... Vijay High M.D. THIS IS AN ELECTRONICALLY VERIFIED REPORT Vijay High M.D. at 03/28/2017 3:54 PM TEV/pcl TD: 03/27/2017 17:45 JOB #: [id number] [facility] A Service [facility] RADIOLOGY TEXT RESULTS PATIENT: BRENDA GHOTRA LOCATION: [address] : [birth year] UNIT #: [id number] AGE: [address]: Sebastien Wood MD SEX: M ORDER DR: MEDICAL IMAGING REPORT Page 1 of 1 COPY
--- NOTE | ~2017-03-23 | FU ---
[facility] Nutrition Therapy DATE: 04/01/17 Patient: BRENDA GHOTRA Physician: SHAUN Address: [address] [place] [address] Room/Bed: [address], Zip: [place] [address] Admit Date: 03/23/17 Date of : [birth year] Height: 5 6 Weight: 211 96 NUTRITION MONITORING/FOLLOW-UP: Reason: Nutrition follow up Anthropometrics: Wt 04/01: 96 kg (likely inaccurate bed scale weight) Labs: BUN 28 Ca++ 8.1 Alb 1.9 AST 1169 ALT 89 Meds: Propofol @ 30.8 mL/hr, furosemide, NaCl, MgS04, KCl, phenergan, protonix, vitamin B12, colace, folic acid, thiamine, MOM, zofran, loperamide I&O's: 3060/1275, last BM 03/28 Skin: Bruises to arm/ hands/ legs/ left eye brow Edema: 1+ BLE/ feet/ generalized Estimated Nutrition Needs: 2517-0347 kcals (25-28 kcals/kg) 75-90 gams protein (1.0-1.2 grams/kg) Assessment: Chart reviewed, events noted. Pt remains intubated and sedated in the ICU. Pt is now on propofol, which is providing an additional 813 kcals from lipids at this time. RD will adjust enteral nutrition recommendations based on additional kcals being received. Pt is tolerating enteral nutrition per RN report, and he has received 42% goal volume over the past 24 hrs and 63% over the past 48 hrs. Trach and PEG possible; however, no decisions have been made at this time. Please see recommendations below. Dx: Inadequate enteral nutrition infusion RT enteral nutrition being held AEB pt received 42% of goal enteral volume ove rthe past 24 hrs, 63% over the past 48 hrs-ACTIVE (WITH UPDATED EVIDENCE) Unintentional weight loss RT EtOH abuse AEB pt's mother/ RN report- ACTIVE Intervention: 1. Decrease enteral nutrition 2. Prostat TID Monitoring, Evaluation and Goals: 1. Enteral nutrition; provide >80% goal volume x 24 hrs- NOT MET 2. Labs; WNL- IN PROGRESS [facility] Nutrition Therapy DATE: 04/01/17 Patient: BRENDA GHOTRA Physician: SHAUN Address: [address] [facility] Room/Bed: [address], Zip: [place] [address] Admit Date: 03/23/17 Date of : [birth year] Height: 5 6 Weight: 211 96 3. Weight; prevent unintentional weight loss- IN PROGRESS New goals: 1. GI; promote regular GI function Recommendations: 1. While the pt is receiving propofol, decrease Jevity 1.5 to 30 mL/hr + 30 mL Prostat TID to provide: 2193 kcals/ 91 grams protein/ 547 mL free H20 2. When propofol is discontinued, increase Jevity 1.5 to 55 mL/hr and discontinue Prostat to provide: 1980 kcals/ 84 grams protein/ 1003 mL free H20 3. Optimize the pt's bowel regimen to promote regularity. Status: Pt is at moderate nutritional risk. RD will continue to follow closely. Respectfully, ANGELO CONTRERAS RD, LD [employer] [facility] cc: client file
--- NOTE | ~2017-03-23 | CO ---
Unit #: [id number] #: [id number] Patient: LUANN MIKE [id number] [address] [place], [place] [address] [id number] I MR#: [id number] NAME: LUANN MIKE ROOM: [facility] Age: 36 Sex: M Admission Date: 03/23/2017 : 1980 Attending Physician: Vikash Davila M.D. Primary Care Physician: No Primary Care Physician Consultation Date: 04/07/2017 CONSULTATION REPORT REASON FOR CONSULTATION Followup. DISCUSSION Mr. Luann Mike is a 36-year-old white male seen in CCU 3, bed 21, on 04/07/17. Patient is currently out of restraints, still breathing through trach, stills has some sedation. Also receiving Haldol, Cogentin and Ativan. Patient was not agitated much but still requiring ventilation. The patient's vital signs - 100.5, 109, 24, 125/60, oxygen saturation 91%. Patient unable to give any coherent history. REVIEW OF SYSTEMS A complete review of systems is unremarkable except as mentioned above. MENTAL STATUS EXAMINATION Vital signs - Please see above. General appearance - Patient dressed in hospital attire. Patient seems somewhat restless in bed, breathing through trach. Attention span, concentration - Poor. Speech, orientation, mood and affect, thought process, thought content, recent and remote memory, language - unable to assess. Insight and judgment - Impaired. DIAGNOSIS PSYCHIATRIC: Delirium, (1) ; alcohol use disorder, severe, F10.20. ASSESSMENT AND PLAN Recommending at this time to continue with the current treatment in CCU. Continue with current medication combination. If needed, consider further adjustment of medication. Please feel free to call with any questions, telephone number . Dictated by... Julianne Kwon TD: 04/08/2017 07:56 JOB #: [id number] Unit #: [id number] #: [id number] Patient: LUANN MIKE CONSULTATION REPORT Page 1 of 1 X Lopez Rainey MD CONSULTATION REPORT
--- NOTE | ~2017-03-23 | CO ---
Unit #: [id number] #: [id number] Patient: LUANN GHOTRA [id number] [address] [place], [place] [address] [id number] MR#: [id number] NAME: LUANN GHOTRA ROOM: [facility] Age: 36 Sex: M Admission Date: 03/23/2017 : 1980 Attending Physician: Sebastien Wood M.D. Primary Care Physician: Primary Care Physician No Consultation Date: 03/28/2017 CONSULTATION REPORT DISCUSSION Luann Ghotra is a 36-year-old male, seen in room CCU-3, bed 21 on 03/28/2017. The patient was intubated, tolerating medication fairly well. No agitation. Currently lowering his sedation. The patient was able to sleep good. The patient's family was at the bedside. The patient has restraints for safety. The patient was unable to give any reliable information. Vital Signs; pulse 67, respirations 16, blood pressure 134/78, oxygen saturation 99%. Plan to gradually extubate the patient and adjust his medications to control the agitation. REVIEW OF SYSTEMS Complete review of systems is unremarkable except as mentioned above. MENTAL STATUS EXAMINATION Vital signs, please see above. General appearance; the patient dressed in hospital attire, currently intubated. Still some agitation, requiring restraints. Attention span and concentration, unable to assess. Speech, unable to assess. Orientation, unable to assess. Mood and affect, thought process, thought content; unable to assess. Recent and remote memory, unable to assess. Language and fund of knowledge, unable to assess. Insight and judgment, impaired. DIAGNOSES Alcohol use disorder, severe, F10.20; alcohol withdrawals; delirium, F05. ASSESSMENT AND PLAN Advised to continue with current treatment in CCU. Continue with current medication. After extubation if further adjustment of medication needed, we will consider that. The patient is still on Haldol 5 mg q.8 hours, Cogentin 1 mg q.8 hours, Ativan 1 mg q.8 hourly. We will continue to follow. Please feel free to call if any questions, telephone #[phone]. Dictated by... Lopez Rainey M.D. VAL/sera TD: 03/29/2017 22:41 JOB #: [id number] Unit #: [id number] #: [id number] Patient: LUANN GHOTRA CONSULTATION REPORT Page 1 of 1 X Lopez Rainey MD CONSULTATION REPORT
--- NOTE | ~2017-03-23 | CT57 ---
[facility] A Service of [facility] RADIOLOGY TEXT RESULTS PATIENT: BRENDA GHOTRA LOCATION: [address] : [birth year] UNIT #: [id number] AGE: [address]: Sebastien Wood MD SEX: M ORDER DR: [id number] [place] [id number] [facility]. [place], [place] [address] [id number] I MR#: [id number] Acc #: [id number] NAME: BRENDA GHOTRA : 1980 SEX: M STUDY DATE/TIME: 03/28/2017 15:14 UNIT: [facility] ROOM: [facility] STUDY DESCRIPTION: CT Chest Wo Cont Attending Physician: Sebastien Wood M.D. Referring Physician: Sebastien Wood M.D. Ordering Physician: Ada Shell M.D. Primary Care Physician: No Primary Care Physician MEDICAL IMAGING REPORT This report is preliminary unless electronic signature is present EXAM CT of the chest without contrast. INDICATIONS Pneumonia and sepsis for 4 days, confusion and shortness of breath for [address] of the chest was performed without contrast. Coronal and sagittal reformatted images were obtained. This CT exam was performed with one or more of the following radiation dose reduction techniques: automatic exposure control, adjustment of mA and/or kV according to patient size, and iterative reconstruction. COMPARISON There are no comparisons. FINDINGS There are bilateral diffuse airspace consolidations consistent with pneumonia. The consolidations are worse on the left than on the right. There are small bilateral pleural effusions. An endotracheal tube is in place. A left IJ central venous catheter is in place. Limited imaging of the upper abdomen demonstrates a scant amount of fluid around the dome of the liver. There is a NG tube within the distal stomach. The liver has a nodular contour suggesting cirrhosis. Bone windows are unremarkable. IMPRESSION 1. Diffuse bilateral airspace consolidations most consistent with the patient's history of pneumonia. Follow up to clearing is suggested. 2. Associated small bilateral pleural effusions. 3. Additional findings as described. [facility] A Service [facility] RADIOLOGY TEXT RESULTS PATIENT: BRENDA GHOTRA LOCATION: [facility]3-21 : 84 UNIT #: [id number] AGE: [address]: Sebastien Wood MD SEX: M ORDER DR: Dictated by... Narciso Garcia M.D. THIS IS AN ELECTRONICALLY VERIFIED REPORT Narciso Garcia M.D. at 03/29/2017 8:35 AM DARRELL/blanquita TD: 03/28/2017 20:55 JOB #: [id number] MEDICAL IMAGING REPORT Page 1 of 1 COPY
--- NOTE | ~2017-03-23 | CR72 ---
[facility] A Service of [facility] RADIOLOGY TEXT RESULTS PATIENT: BRENDA GHOTRA LOCATION: [facility]3-21 : [birth year] UNIT #: [id number] AGE: [address]: Pérez Coy MD SEX: M ORDER DR: [id number] [facility] [address] [facility]. [place], [place] [address] [id number] I MR#: [id number] Acc #: [id number] NAME: BRENDA GHOTRA : 1980 SEX: M STUDY DATE/TIME: 03/23/2017 6:54 UNIT: [facility] ROOM: [id number] STUDY DESCRIPTION: CR Chest Single View Portable Attending Physician: Pérez Coy M.D. Referring Physician: Sebastien Wood M.D. Ordering Physician: Aaron French M.D. Primary Care Physician: Primary Care Physician No MEDICAL IMAGING REPORT This report is preliminary unless electronic signature is present EXAM Portable chest 03/23/2017 HISTORY Status post intubation today. COMPARISON Chest 10/19/2009 FINDINGS Frontal chest demonstrates placement of an endotracheal tube. The tip projects 3.8 cm above the brenda. No pneumothorax. Lungs appear otherwise clear. Heart size and mediastinum within normal limits. Pulmonary vasculature unremarkable. IMPRESSION 1. Placement of endotracheal tube with tip projecting 3.8 cm above the brenda. No pneumothorax. 2. Lungs appear adequately inflated. No focal infiltrates. Dictated by... Bridger Randall M.D. THIS IS AN ELECTRONICALLY VERIFIED REPORT Bridger Randall M.D. at 03/23/2017 2:12 PM LOVE/doug TD: 03/23/2017 07:52 JOB #: [id number] MEDICAL IMAGING REPORT Page 1 of 1 COPY
--- NOTE | ~2017-03-23 | CR7 ---
[facility] A Service of [facility] RADIOLOGY TEXT RESULTS PATIENT: BRENDA GHOTRA LOCATION: [address]21 : [birth year] UNIT #: [id number] AGE: [address]: Pérez Coy MD SEX: M ORDER DR: [id number] [facility] [address] [facility]. [place], [place] [address] [id number] I MR#: [id number] Acc #: [id number] NAME: BRENDA GHOTRA : 1980 SEX: M STUDY DATE/TIME: 03/23/2017 16:00 UNIT: [facility] ROOM: [facility] STUDY DESCRIPTION: CR Abdomen Single AP View Attending Physician: Pérez Coy M.D. Referring Physician: Sebastien Wood M.D. Ordering Physician: Pérez Coy M.D. Primary Care Physician: Primary Care Physician No MEDICAL IMAGING REPORT This report is preliminary unless electronic signature is present EXAM Abdominal radiograph INDICATIONS Dobbhoff tube placement. PROCEDURE 3 supine views of the abdomen COMPARISON None FINDINGS Tip of Dobbhoff tube is in the very distal stomach. Nonobstructed pattern. IMPRESSION Tip of Dobbhoff tube in the distal stomach. Dictated by... Amor Gomez M.D. THIS IS AN ELECTRONICALLY VERIFIED REPORT Amor Gomez M.D. at 03/24/2017 7:41 AM Valerie TD: 03/24/2017 06:40 JOB #: [id number] MEDICAL IMAGING REPORT Page 1 of 1 COPY
[2017-03-23 03:53] LABS: BASOPHIL% 0.5 % (0-2.5); EOSINOPHIL% 0.2 % (0.0-7.0); HEMATOCRIT 44.1 % (38.0-50.0); HEMOGLOBIN 14.9 gm/dL (13.0-16.0); LYMPHOCYTE# 0.7 X10e3 (1.0-3.5); LYMPHOCYTE% 6.4 % (17.0-45.0); MEAN CELL VOLUME 93.6 FL (83-96); MEAN CORPUSCULAR HEMOGLOBIN 31.6 PG (28-34); MEAN CORPUSCULAR HGB CONC 33.8 g/dL (30-36); MEAN PLATELET VOLUME 10.4 FL (6.5-11.5); MONOCYTE% 9.3 % (3.0-12.0); NEUTROPHIL# 8.6 X10e3 (1.5-7.1); NEUTROPHIL% 83.6 % (40-75); RED BLOOD COUNT 4.71 X10e (3.90-5.60); RED CELL DISTRIBUTION WIDTH 13.2 % (11.0-15.5); WHITE BLOOD COUNT 10.3 X10e3 (4.0-10.5)
[2017-03-23 03:59] LABS: POC - CKMB 6.2 ng/mL (0.0-7.9); POC - TROPONIN <0.05 ng/mL (<=0.05)
[2017-03-23 04:07] LABS: ALBUMIN SERUM 4.1 g/dL (3.5-5.0); ALKALINE PHOSPHATASE 90 U/L (32-92); ALT (SGPT) 69 U/L (10-40); AST (SGOT) 240 U/L (10-42); BILIRUBIN, DIRECT 0.8 mg/dL (0.0-0.2); BILIRUBIN,INDIRECT 2.3 mg/dL (0.0-0.9); BILIRUBIN,TOTAL 3.1 mg/dL (0.2-2.0); BLOOD UREA NITROGEN 6 mg/dL (9-23); BUN/CREATININE RATIO 8.57; CALCIUM SERUM 9.4 mg/dL (8.4-10.2); CARBON DIOXIDE 27 mmol/L (22-31); CHLORIDE 101 mmol/L (100-111); CREATININE SERUM 0.7 mg/dL (0.6-1.4); GLOM FILT RATE Estimated 123.2 mL/min (>60); GLUCOSE FASTING 90 mg/dL (70-110); POTASSIUM 3.7 mmol/L (3.5-5.1); PROTEIN TOTAL SERUM 8.7 g/dL (6.0-8.3); SALICYLATE <4.0 mg/dL; SODIUM 138 mmol/L (135-145)
[2017-03-23 04:11] LABS: ACETAMINOPHEN <10 ug/mL; ALCOHOL BLOOD <5 mg/dL (0)
[2017-03-23 04:20] LABS: DIFF IND YES; PLATELET COUNT 81 X10e3 (140-420)
[2017-03-23 04:22] LABS: ANISOCYTOSIS SL; DIFFERENTIAL COMMENT OCC.GIANT PLT; PLATELET ESTIMATE DECREASED (NORMAL)
[2017-03-23] MEDS ORDERED: VITAMINE B-1100 MG PO (05:17)
[2017-03-23] MEDS ORDERED: FOLIC ACID1 MG PO (05:17)
[2017-03-23] MEDS ORDERED: MULTI VITAMIN1 EACH PO (05:18)
[2017-03-23] MEDS ORDERED: B-COMPLEX-VITA1 EACH PO (05:18)
[2017-03-23] MEDS ORDERED: PANTOPRAZOLE SO40 MG PO (05:19)
[2017-03-23] MEDS ORDERED: DICYCLOMINE HCL10 MG PO (05:21)
[2017-03-23] MEDS ORDERED: IMODIUM2 MG PO (05:21)
[2017-03-23] MEDS ORDERED: ZOFRAN2 MG/1 ML PO (05:23)
[2017-03-23] MEDS ORDERED: PHENERGAN SUPP25 MG PR (05:24)
[2017-03-23] MEDS ORDERED: PHENERGAN12.5 MG PO (05:27)
[2017-03-23] MEDS ORDERED: DIASTAT2.5 MG PR (05:28)
[2017-03-23] MEDS ORDERED: PAIN RELIEF325 M1 PO (05:29)
[2017-03-23] MEDS ORDERED: MILK OF MAGNESIA PO (05:29)
[2017-03-23] MEDS ORDERED: DESYREL50 MG PO (05:30)
[2017-03-23 07:00] LABS: ARTERIAL BLD GAS O2 SATURATION 98.2 % (90.0-100.0); ARTERIAL BLOOD GAS CARBOXY HB 0.8 %sat (0.0-9.0); ARTERIAL BLOOD GAS HCO3 24.3 mmol/L; ARTERIAL BLOOD GAS PCO2 40.9 mmHg (35.0-45.0); ARTERIAL BLOOD GAS pH 7.381 (7.350-7.450)
[2017-03-23 07:01] LABS: ARTERIAL BLOOD GAS ALLEN TEST NORMAL; ARTERIAL BLOOD GAS ART SITE RIGHT RADIAL; ARTERIAL BLOOD GAS VENT MODE A/C; ARTERIAL DRAW? YES
[2017-03-23 07:21] LABS: BASOPHIL% 0.2 % (0-2.5); DIFF IND NO; HEMATOCRIT 39.2 % (38.0-50.0); HEMOGLOBIN 13.2 gm/dL (13.0-16.0); LYMPHOCYTE# 0.6 X10e3 (1.0-3.5); LYMPHOCYTE% 8.2 % (17.0-45.0); MEAN CELL VOLUME 94.6 FL (83-96); MEAN CORPUSCULAR HEMOGLOBIN 31.9 PG (28-34); MEAN CORPUSCULAR HGB CONC 33.7 g/dL (30-36); MEAN PLATELET VOLUME 10.3 FL (6.5-11.5); MONOCYTE# 0.4 X10e3 (0-1.0); MONOCYTE% 5.8 % (3.0-12.0); NEUTROPHIL# 6.3 X10e3 (1.5-7.1); NEUTROPHIL% 85.8 % (40-75); PLATELET COUNT 74 X10e3 (140-420); RED BLOOD COUNT 4.14 X10e (3.90-5.60); RED CELL DISTRIBUTION WIDTH 13.2 % (11.0-15.5); WHITE BLOOD COUNT 7.4 X10e3 (4.0-10.5)
[2017-03-23 07:40] LABS: CALCIUM SERUM 8.2 mg/dL (8.4-10.2); CREATININE SERUM 0.5 mg/dL (0.6-1.4); GLOM FILT RATE Estimated 141.4 mL/min (>60); POTASSIUM 3.1 mmol/L (3.5-5.1)
[2017-03-23 12:06] LABS: THYROID STIMULATING HORMONE 1.85 uIU/ml (0.34-5.60)
[2017-03-23 12:13] LABS: FREE THYROXIN (T4) 0.91 ng/dL (0.58-1.64)
[2017-03-23 12:41] LABS: URINE APPEARANCE TURBID; URINE BLOOD NEG (NEG); URINE COLOR DK YELLOW; URINE GLUCOSE NEG (NEG); URINE KETONE NEG (NEG); URINE LEUKOCYTE ESTERASE TRACE (NEG); URINE NITRATE NEG (NEG); URINE PH 5.5 (5-8); URINE PROTEIN NEG (NEG); URINE SPECIFIC GRAVITY 1.016 (1.003-1.035)
[2017-03-23 12:43] LABS: URINE BACTERIA AUWI NEG (NEGATIVE); URINE SQUAMOUS EPITHELIAL CELL NONE SEEN /[HPF]; UWBCS1 AUWI 0-2 (0-5)
[2017-03-23 12:58] LABS: CULTURE INDICATED? NO; URINE BILIRUBIN NEG (NEG)
[2017-03-23 13:33] LABS: AMPHETAMINE NEG (NEG); BARBITURATES NEG (NEG); BENZODIAZEPINES POS (NEG); COCAINE NEG (NEG); MARIJUANA POS (NEG); OPIATES NEG (NEG); TRICYCLIC ANTIDEPRESSANTS NEG (NEG); U METHADONE NEG (NEG)
[2017-03-24 05:40] LABS: INR 1.3
[2017-03-24 05:47] LABS: BASOPHIL% 0.3 % (0-2.5); EOSINOPHIL# 0.1 X10e3 (0-0.7); EOSINOPHIL% 1.4 % (0.0-7.0); HEMATOCRIT 37.9 % (38.0-50.0); HEMOGLOBIN 12.9 gm/dL (13.0-16.0); LYMPHOCYTE# 0.9 X10e3 (1.0-3.5); LYMPHOCYTE% 12.5 % (17.0-45.0); MEAN CELL VOLUME 94.2 FL (83-96); MEAN CORPUSCULAR HEMOGLOBIN 32.1 PG (28-34); MEAN PLATELET VOLUME 10.8 FL (6.5-11.5); MONOCYTE# 0.5 X10e3 (0-1.0); MONOCYTE% 7.7 % (3.0-12.0); NEUTROPHIL# 5.6 X10e3 (1.5-7.1); NEUTROPHIL% 78.1 % (40-75); PLATELET COUNT 71 X10e3 (140-420); RED BLOOD COUNT 4.02 X10e (3.90-5.60); RED CELL DISTRIBUTION WIDTH 13.2 % (11.0-15.5); WHITE BLOOD COUNT 7.1 X10e3 (4.0-10.5)
[2017-03-24 05:50] LABS: DIFF IND NO
[2017-03-24 06:35] LABS: ALKALINE PHOSPHATASE 72 U/L (32-92); ALT (SGPT) 78 U/L (10-40); AST (SGOT) 259 U/L (10-42); BILIRUBIN,TOTAL 2.1 mg/dL (0.2-2.0); CALCIUM SERUM 8.2 mg/dL (8.4-10.2); CARBON DIOXIDE 22 mmol/L (22-31); CHLORIDE 108 mmol/L (100-111); CREATININE SERUM 0.5 mg/dL (0.6-1.4); GLOM FILT RATE Estimated 141.4 mL/min (>60); GLUCOSE FASTING 91 mg/dL (70-110); POTASSIUM 3.1 mmol/L (3.5-5.1); PROTEIN TOTAL SERUM 6.4 g/dL (6.0-8.3); SODIUM 140 mmol/L (135-145)
[2017-03-24 06:36] LABS: BLOOD UREA NITROGEN <5 mg/dL (9-23)
[2017-03-25 02:57] LABS: URINE APPEARANCE CLOUDY; URINE BLOOD 3+ (NEG); URINE COLOR DK YELLOW; URINE GLUCOSE NEG (NEG); URINE KETONE NEG (NEG); URINE LEUKOCYTE ESTERASE 1+ (NEG); URINE NITRATE POS (NEG); URINE PROTEIN NEG (NEG)
[2017-03-25 02:58] LABS: CULTURE INDICATED? YES; URINE BACTERIA AUWI NEG (NEGATIVE); URINE SQUAMOUS EPITHELIAL CELL NONE SEEN /[HPF]
[2017-03-25 02:58] LABS: BASOPHIL% 0.9 % (0-2.5); EOSINOPHIL# 0.1 X10e3 (0-0.7); EOSINOPHIL% 2.7 % (0.0-7.0); HEMATOCRIT 40.3 % (38.0-50.0); HEMOGLOBIN 13.5 gm/dL (13.0-16.0); LYMPHOCYTE# 0.7 X10e3 (1.0-3.5); LYMPHOCYTE% 18.8 % (17.0-45.0); MEAN CELL VOLUME 95.7 FL (83-96); MEAN CORPUSCULAR HGB CONC 33.4 g/dL (30-36); MONOCYTE# 0.1 X10e3 (0-1.0); MONOCYTE% 3.1 % (3.0-12.0); NEUTROPHIL# 2.8 X10e3 (1.5-7.1); NEUTROPHIL% 74.5 % (40-75); PLATELET COUNT 70 X10e3 (140-420); RED BLOOD COUNT 4.21 X10e (3.90-5.60); RED CELL DISTRIBUTION WIDTH 13.1 % (11.0-15.5); WHITE BLOOD COUNT 3.8 X10e3 (4.0-10.5)
[2017-03-25 02:59] LABS: DIFF IND NO
[2017-03-25 03:10] LABS: URINE BILIRUBIN POS (NEG)
[2017-03-25 03:11] LABS: URINE MUCUS PRESENT
[2017-03-25 03:37] LABS: ALBUMIN SERUM 2.9 g/dL (3.5-5.0); ALKALINE PHOSPHATASE 73 U/L (32-92); ALT (SGPT) 73 U/L (10-40); AST (SGOT) 260 U/L (10-42); BILIRUBIN,TOTAL 3.2 mg/dL (0.2-2.0); CALCIUM SERUM 7.7 mg/dL (8.4-10.2); CARBON DIOXIDE 21 mmol/L (22-31); CHLORIDE 114 mmol/L (100-111); CREATININE SERUM 0.8 mg/dL (0.6-1.4); GLOM FILT RATE Estimated 116.6 mL/min (>60); GLUCOSE FASTING 105 mg/dL (70-110); MAGNESIUM 1.5 mg/dL (1.6-3.0); POTASSIUM 3.9 mmol/L (3.5-5.1); PROTEIN TOTAL SERUM 6.7 g/dL (6.0-8.3); SODIUM 143 mmol/L (135-145)
[2017-03-25 03:38] LABS: BLOOD UREA NITROGEN <5 mg/dL (9-23); BUN/CREATININE RATIO 6.25
[2017-03-25 04:02] LABS: ARTERIAL BLOOD GAS CARBOXY HB 0.8 %sat (0.0-9.0); ARTERIAL BLOOD GAS HCO3 21.1 mmol/L; ARTERIAL BLOOD GAS PCO2 41.2 mmHg (35.0-45.0); ARTERIAL BLOOD GAS PO2 94.5 mmHg (80.0-100); ARTERIAL BLOOD GAS pH 7.319 (7.350-7.450)
[2017-03-25 04:04] LABS: ARTERIAL BLOOD GAS ART SITE RIGHT BRACHIAL; ARTERIAL BLOOD GAS DELIVERY VENT; ARTERIAL BLOOD GAS VENT MODE AC; ARTERIAL DRAW? YES
[2017-03-25 12:25] LABS: BUN/CREATININE RATIO 7.5; CALCIUM SERUM 7.6 mg/dL (8.4-10.2); CREATININE SERUM 0.8 mg/dL (0.6-1.4); GLOM FILT RATE Estimated 116.6 mL/min (>60); POTASSIUM 3.9 mmol/L (3.5-5.1)
[2017-03-26 04:10] LABS: ARTERIAL BLD GAS O2 SATURATION 94.5 % (90.0-100.0); ARTERIAL BLOOD GAS CARBOXY HB 0.7 %sat (0.0-9.0); ARTERIAL BLOOD GAS HCO3 22.6 mmol/L; ARTERIAL BLOOD GAS MET HB 0.6 %sat (0.0-2.0); ARTERIAL BLOOD GAS PCO2 46.9 mmHg (35.0-45.0); ARTERIAL BLOOD GAS pH 7.292 (7.350-7.450)
[2017-03-26 04:17] LABS: ARTERIAL BLOOD GAS ART SITE RIGHT FEMORAL; ARTERIAL BLOOD GAS DELIVERY VENT; ARTERIAL BLOOD GAS PO2 71.1 mmHg (80.0-100); ARTERIAL BLOOD GAS VENT MODE AC; ARTERIAL DRAW? YES
[2017-03-26 04:24] LABS: BASOPHIL% 0.5 % (0-2.5); EOSINOPHIL# 0.3 X10e3 (0-0.7); EOSINOPHIL% 3.3 % (0.0-7.0); HEMATOCRIT 37.5 % (38.0-50.0); HEMOGLOBIN 12.4 gm/dL (13.0-16.0); LYMPHOCYTE# 1.1 X10e3 (1.0-3.5); LYMPHOCYTE% 13.5 % (17.0-45.0); MEAN CELL VOLUME 96.9 FL (83-96); MEAN CORPUSCULAR HEMOGLOBIN 31.9 PG (28-34); MEAN PLATELET VOLUME 10.4 FL (6.5-11.5); MONOCYTE# 1.3 X10e3 (0-1.0); NEUTROPHIL# 5.6 X10e3 (1.5-7.1); NEUTROPHIL% 66.7 % (40-75); PLATELET COUNT 56 X10e3 (140-420); RED BLOOD COUNT 3.87 X10e (3.90-5.60); RED CELL DISTRIBUTION WIDTH 13.5 % (11.0-15.5)
[2017-03-26 04:25] LABS: DIFF IND NO; WHITE BLOOD COUNT 8.4 X10e3 (4.0-10.5)
[2017-03-26 04:56] LABS: ALBUMIN SERUM 2.5 g/dL (3.5-5.0); BILIRUBIN,TOTAL 2.5 mg/dL (0.2-2.0); BUN/CREATININE RATIO 12.22; CALCIUM SERUM 7.7 mg/dL (8.4-10.2); CREATININE SERUM 0.9 mg/dL (0.6-1.4); MAGNESIUM 1.6 mg/dL (1.6-3.0); POTASSIUM 4.2 mmol/L (3.5-5.1)
[2017-03-26 09:35] LABS: BODY FLUID SOURCE BRONCHIAL LAVAGE
[2017-03-26 09:36] LABS: BODY FLUID APPEARANCE CLOUDY
[2017-03-26 09:42] LABS: ARTERIAL BLD GAS O2 SATURATION 94.8 % (90.0-100.0); ARTERIAL BLOOD GAS CARBOXY HB 0.6 %sat (0.0-9.0); ARTERIAL BLOOD GAS HCO3 22.6 mmol/L; ARTERIAL BLOOD GAS MET HB 0.8 %sat (0.0-2.0)
[2017-03-26 09:43] LABS: ARTERIAL BLOOD GAS ART SITE RIGHT RADIAL; ARTERIAL BLOOD GAS DELIVERY VENT; ARTERIAL BLOOD GAS PO2 74.3 mmHg (80.0-100); ARTERIAL BLOOD GAS VENT MODE AC; ARTERIAL DRAW? YES
[2017-03-26 10:07] LABS: BASOPHIL# 0.1 X10e3 (0-0.3); BASOPHIL% 0.7 % (0-2.5); EOSINOPHIL# 0.2 X10e3 (0-0.7); EOSINOPHIL% 2.9 % (0.0-7.0); HEMATOCRIT 36.4 % (38.0-50.0); HEMOGLOBIN 12.1 gm/dL (13.0-16.0); LYMPHOCYTE# 0.8 X10e3 (1.0-3.5); LYMPHOCYTE% 9.9 % (17.0-45.0); MEAN CELL VOLUME 96.5 FL (83-96); MEAN CORPUSCULAR HGB CONC 33.1 g/dL (30-36); MEAN PLATELET VOLUME 10.8 FL (6.5-11.5); MONOCYTE# 1.3 X10e3 (0-1.0); NEUTROPHIL# 5.8 X10e3 (1.5-7.1); NEUTROPHIL% 70.5 % (40-75); PLATELET COUNT 61 X10e3 (140-420); RED BLOOD COUNT 3.77 X10e (3.90-5.60); RED CELL DISTRIBUTION WIDTH 13.6 % (11.0-15.5); WHITE BLOOD COUNT 8.2 X10e3 (4.0-10.5)
[2017-03-26 10:35] LABS: DIFF IND NO
[2017-03-26 13:49] LABS: ALBUMIN SERUM 2.3 g/dL (3.5-5.0); BILIRUBIN,TOTAL 2.1 mg/dL (0.2-2.0); BUN/CREATININE RATIO 10.9; CALCIUM SERUM 7.8 mg/dL (8.4-10.2); CREATININE SERUM 1.1 mg/dL (0.6-1.4); GLOM FILT RATE Estimated 87.1 mL/min (>60); PROTEIN TOTAL SERUM 5.6 g/dL (6.0-8.3)
[2017-03-27 03:58] LABS: ARTERIAL BLD GAS O2 SATURATION 95.4 % (90.0-100.0); ARTERIAL BLOOD GAS CARBOXY HB 0.6 %sat (0.0-9.0); ARTERIAL BLOOD GAS HCO3 23.5 mmol/L; ARTERIAL BLOOD GAS MET HB 0.7 %sat (0.0-2.0); ARTERIAL BLOOD GAS PCO2 44.7 mmHg (35.0-45.0)
[2017-03-27 03:59] LABS: ARTERIAL BLOOD GAS ART SITE RIGHT BRACHIAL; ARTERIAL BLOOD GAS DELIVERY VENT; ARTERIAL BLOOD GAS PO2 79.1 mmHg (80.0-100); ARTERIAL BLOOD GAS VENT MODE AC; ARTERIAL DRAW? YES
[2017-03-27 05:46] LABS: MAGNESIUM 1.9 mg/dL (1.6-3.0); POTASSIUM 3.9 mmol/L (3.5-5.1)
[2017-03-27 06:38] LABS: BASOPHIL% 0.5 % (0-2.5); EOSINOPHIL# 0.2 X10e3 (0-0.7); EOSINOPHIL% 2.2 % (0.0-7.0); HEMATOCRIT 34.5 % (38.0-50.0); HEMOGLOBIN 11.5 gm/dL (13.0-16.0); LYMPHOCYTE# 0.7 X10e3 (1.0-3.5); LYMPHOCYTE% 8.8 % (17.0-45.0); MEAN CELL VOLUME 96.6 FL (83-96); MEAN CORPUSCULAR HEMOGLOBIN 32.1 PG (28-34); MEAN CORPUSCULAR HGB CONC 33.3 g/dL (30-36); MEAN PLATELET VOLUME 10.5 FL (6.5-11.5); MONOCYTE# 1.3 X10e3 (0-1.0); MONOCYTE% 16.4 % (3.0-12.0); NEUTROPHIL# 5.7 X10e3 (1.5-7.1); NEUTROPHIL% 72.1 % (40-75); PLATELET COUNT 69 X10e3 (140-420); RED BLOOD COUNT 3.57 X10e (3.90-5.60); RED CELL DISTRIBUTION WIDTH 13.3 % (11.0-15.5); WHITE BLOOD COUNT 7.9 X10e3 (4.0-10.5)
[2017-03-27 06:39] LABS: DIFF IND NO
[2017-03-27 06:40] LABS: ALBUMIN SERUM 2.2 g/dL (3.5-5.0); BILIRUBIN,TOTAL 1.8 mg/dL (0.2-2.0); BUN/CREATININE RATIO 10.83; CALCIUM SERUM 7.7 mg/dL (8.4-10.2); CREATININE SERUM 1.2 mg/dL (0.6-1.4); GLOM FILT RATE Estimated 78.4 mL/min (>60); POTASSIUM 3.9 mmol/L (3.5-5.1); PROTEIN TOTAL SERUM 5.6 g/dL (6.0-8.3)
[2017-03-28 04:42] LABS: ARTERIAL BLD GAS O2 SATURATION 96.2 % (90.0-100.0); ARTERIAL BLOOD GAS CARBOXY HB 0.8 %sat (0.0-9.0); ARTERIAL BLOOD GAS HCO3 23.8 mmol/L; ARTERIAL BLOOD GAS MET HB 0.5 %sat (0.0-2.0); ARTERIAL BLOOD GAS PCO2 42.9 mmHg (35.0-45.0); ARTERIAL BLOOD GAS PO2 81.6 mmHg (80.0-100); ARTERIAL BLOOD GAS pH 7.353 (7.350-7.450)
[2017-03-28 04:43] LABS: ARTERIAL BLOOD GAS ALLEN TEST NORMAL; ARTERIAL BLOOD GAS ART SITE RIGHT RADIAL; ARTERIAL BLOOD GAS DELIVERY VENT; ARTERIAL BLOOD GAS VENT MODE AC; ARTERIAL DRAW? YES
[2017-03-28 06:08] LABS: BASOPHIL% 0.4 % (0-2.5); EOSINOPHIL# 0.3 X10e3 (0-0.7); EOSINOPHIL% 2.7 % (0.0-7.0); HEMATOCRIT 34.7 % (38.0-50.0); HEMOGLOBIN 11.6 gm/dL (13.0-16.0); LYMPHOCYTE# 0.9 X10e3 (1.0-3.5); LYMPHOCYTE% 9.2 % (17.0-45.0); MEAN CELL VOLUME 95.5 FL (83-96); MEAN CORPUSCULAR HEMOGLOBIN 31.9 PG (28-34); MEAN CORPUSCULAR HGB CONC 33.4 g/dL (30-36); MONOCYTE# 1.6 X10e3 (0-1.0); NEUTROPHIL# 6.6 X10e3 (1.5-7.1); NEUTROPHIL% 70.7 % (40-75); PLATELET COUNT 84 X10e3 (140-420); RED BLOOD COUNT 3.64 X10e (3.90-5.60); RED CELL DISTRIBUTION WIDTH 13.5 % (11.0-15.5); WHITE BLOOD COUNT 9.3 X10e3 (4.0-10.5)
[2017-03-28 06:16] LABS: DIFF IND NO
[2017-03-28 06:37] LABS: ALBUMIN SERUM 2.2 g/dL (3.5-5.0); BILIRUBIN,TOTAL 1.2 mg/dL (0.2-2.0); BUN/CREATININE RATIO 11.81; CALCIUM SERUM 7.8 mg/dL (8.4-10.2); CREATININE SERUM 1.1 mg/dL (0.6-1.4); GLOM FILT RATE Estimated 87.1 mL/min (>60); POTASSIUM 3.7 mmol/L (3.5-5.1); PROTEIN TOTAL SERUM 5.8 g/dL (6.0-8.3)
[2017-03-29 03:52] LABS: ARTERIAL BLD GAS O2 SATURATION 94.7 % (90.0-100.0); ARTERIAL BLOOD GAS CARBOXY HB 0.7 %sat (0.0-9.0); ARTERIAL BLOOD GAS HCO3 26.3 mmol/L; ARTERIAL BLOOD GAS MET HB 0.5 %sat (0.0-2.0); ARTERIAL BLOOD GAS PCO2 44.4 mmHg (35.0-45.0)
[2017-03-29 03:53] LABS: ARTERIAL BLOOD GAS ALLEN TEST NORMAL; ARTERIAL BLOOD GAS ART SITE RIGHT RADIAL; ARTERIAL BLOOD GAS DELIVERY VENT; ARTERIAL BLOOD GAS PO2 69.1 mmHg (80.0-100); ARTERIAL BLOOD GAS VENT MODE AC; ARTERIAL DRAW? YES
[2017-03-29 05:52] LABS: HEMATOCRIT 37.9 % (38.0-50.0); HEMOGLOBIN 12.7 gm/dL (13.0-16.0); MEAN CELL VOLUME 94.9 FL (83-96); MEAN CORPUSCULAR HEMOGLOBIN 31.8 PG (28-34); MEAN CORPUSCULAR HGB CONC 33.6 g/dL (30-36); MEAN PLATELET VOLUME 9.8 FL (6.5-11.5); RED BLOOD COUNT 3.99 X10e (3.90-5.60); RED CELL DISTRIBUTION WIDTH 13.2 % (11.0-15.5); WHITE BLOOD COUNT 7.4 X10e3 (4.0-10.5)
[2017-03-29 06:17] LABS: ALBUMIN SERUM 2.1 g/dL (3.5-5.0); BILIRUBIN,TOTAL 1.1 mg/dL (0.2-2.0); BUN/CREATININE RATIO 17.77; CALCIUM SERUM 8.2 mg/dL (8.4-10.2); CREATININE SERUM 0.9 mg/dL (0.6-1.4); MAGNESIUM 1.7 mg/dL (1.6-3.0); POTASSIUM 3.3 mmol/L (3.5-5.1)
[2017-03-29 10:45] LABS: ARTERIAL BLD GAS O2 SATURATION 90.8 % (90.0-100.0); ARTERIAL BLOOD GAS CARBOXY HB 0.9 %sat (0.0-9.0); ARTERIAL BLOOD GAS HCO3 26.9 mmol/L; ARTERIAL BLOOD GAS MET HB 0.5 %sat (0.0-2.0); ARTERIAL BLOOD GAS pH 7.406 (7.350-7.450)
[2017-03-29 10:46] LABS: ARTERIAL BLOOD GAS ART SITE LEFT RADIAL; ARTERIAL BLOOD GAS DELIVERY VENT; ARTERIAL BLOOD GAS VENT MODE AC; ARTERIAL DRAW? YES
[2017-03-29 12:59] LABS: ARTERIAL BLD GAS O2 SATURATION 92.4 % (90.0-100.0); ARTERIAL BLOOD GAS CARBOXY HB 0.9 %sat (0.0-9.0); ARTERIAL BLOOD GAS HCO3 26.7 mmol/L; ARTERIAL BLOOD GAS MET HB 0.4 %sat (0.0-2.0); ARTERIAL BLOOD GAS PCO2 41.8 mmHg (35.0-45.0); ARTERIAL BLOOD GAS pH 7.414 (7.350-7.450)
[2017-03-29 13:00] LABS: ARTERIAL BLOOD GAS ART SITE RIGHT RADIAL; ARTERIAL BLOOD GAS DELIVERY VENT; ARTERIAL BLOOD GAS PO2 63.5 mmHg (80.0-100); ARTERIAL BLOOD GAS VENT MODE AC; ARTERIAL DRAW? YES
[2017-03-30 04:06] LABS: ARTERIAL BLD GAS O2 SATURATION 95.2 % (90.0-100.0); ARTERIAL BLOOD GAS CARBOXY HB 0.6 %sat (0.0-9.0); ARTERIAL BLOOD GAS HCO3 26.8 mmol/L; ARTERIAL BLOOD GAS MET HB 0.5 %sat (0.0-2.0); ARTERIAL BLOOD GAS PCO2 41.7 mmHg (35.0-45.0); ARTERIAL BLOOD GAS pH 7.417 (7.350-7.450)
[2017-03-30 05:15] LABS: ARTERIAL BLOOD GAS ART SITE RIGHT BRACHIAL; ARTERIAL BLOOD GAS DELIVERY VENT; ARTERIAL BLOOD GAS PO2 69.8 mmHg (80.0-100); ARTERIAL BLOOD GAS VENT MODE AC; ARTERIAL DRAW? YES
[2017-03-30 05:54] LABS: BASOPHIL# 0.1 X10e3 (0-0.3); BASOPHIL% 0.8 % (0-2.5); EOSINOPHIL# 0.3 X10e3 (0-0.7); EOSINOPHIL% 3.9 % (0.0-7.0); HEMATOCRIT 33.5 % (38.0-50.0); HEMOGLOBIN 11.4 gm/dL (13.0-16.0); LYMPHOCYTE# 1.4 X10e3 (1.0-3.5); LYMPHOCYTE% 16.6 % (17.0-45.0); MEAN CELL VOLUME 93.3 FL (83-96); MEAN CORPUSCULAR HEMOGLOBIN 31.7 PG (28-34); MEAN CORPUSCULAR HGB CONC 33.9 g/dL (30-36); MEAN PLATELET VOLUME 10.6 FL (6.5-11.5); MONOCYTE# 1.5 X10e3 (0-1.0); MONOCYTE% 18.4 % (3.0-12.0); NEUTROPHIL# 4.9 X10e3 (1.5-7.1); NEUTROPHIL% 60.3 % (40-75); PLATELET COUNT 106 X10e3 (140-420); RED BLOOD COUNT 3.59 X10e (3.90-5.60); RED CELL DISTRIBUTION WIDTH 13.5 % (11.0-15.5); WHITE BLOOD COUNT 8.2 X10e3 (4.0-10.5)
[2017-03-30 05:58] LABS: DIFF IND NO
[2017-03-30 06:34] LABS: BUN/CREATININE RATIO 15.45; CALCIUM SERUM 7.8 mg/dL (8.4-10.2); CREATININE SERUM 1.1 mg/dL (0.6-1.4); GLOM FILT RATE Estimated 87.1 mL/min (>60); MAGNESIUM 1.8 mg/dL (1.6-3.0); POTASSIUM 3.8 mmol/L (3.5-5.1)
[2017-03-31 04:23] LABS: ARTERIAL BLOOD GAS CARBOXY HB 0.6 %sat (0.0-9.0); ARTERIAL BLOOD GAS HCO3 27.9 mmol/L; ARTERIAL BLOOD GAS MET HB 0.6 %sat (0.0-2.0)
[2017-03-31 04:24] LABS: ARTERIAL BLOOD GAS ALLEN TEST NORMAL; ARTERIAL BLOOD GAS ART SITE RIGHT RADIAL; ARTERIAL BLOOD GAS DELIVERY VENT; ARTERIAL BLOOD GAS PO2 67.7 mmHg (80.0-100); ARTERIAL BLOOD GAS VENT MODE A/C; ARTERIAL DRAW? YES
[2017-03-31 05:53] LABS: BASOPHIL# 0.1 X10e3 (0-0.3); BASOPHIL% 1.2 % (0-2.5); EOSINOPHIL# 0.3 X10e3 (0-0.7); EOSINOPHIL% 2.9 % (0.0-7.0); HEMATOCRIT 36.7 % (38.0-50.0); HEMOGLOBIN 12.2 gm/dL (13.0-16.0); LYMPHOCYTE# 1.9 X10e3 (1.0-3.5); LYMPHOCYTE% 15.6 % (17.0-45.0); MEAN CELL VOLUME 94.3 FL (83-96); MEAN CORPUSCULAR HEMOGLOBIN 31.5 PG (28-34); MEAN CORPUSCULAR HGB CONC 33.4 g/dL (30-36); MEAN PLATELET VOLUME 10.5 FL (6.5-11.5); MONOCYTE# 1.5 X10e3 (0-1.0); MONOCYTE% 12.6 % (3.0-12.0); NEUTROPHIL# 8.1 X10e3 (1.5-7.1); NEUTROPHIL% 67.7 % (40-75); PLATELET COUNT 135 X10e3 (140-420); RED BLOOD COUNT 3.89 X10e (3.90-5.60); RED CELL DISTRIBUTION WIDTH 13.5 % (11.0-15.5)
[2017-03-31 06:20] LABS: DIFF IND NO
[2017-03-31 06:35] LABS: ALBUMIN SERUM 1.9 g/dL (3.5-5.0); CALCIUM SERUM 8.1 mg/dL (8.4-10.2); CREATININE SERUM 0.9 mg/dL (0.6-1.4); MAGNESIUM 1.7 mg/dL (1.6-3.0); POTASSIUM 3.9 mmol/L (3.5-5.1); PROTEIN TOTAL SERUM 5.7 g/dL (6.0-8.3)
[2017-03-31 13:07] LABS: ARTERIAL BLD GAS O2 SATURATION 94.8 % (90.0-100.0); ARTERIAL BLOOD GAS ALLEN TEST NORMAL; ARTERIAL BLOOD GAS ART SITE LEFT RADIAL; ARTERIAL BLOOD GAS CARBOXY HB 0.9 %sat (0.0-9.0); ARTERIAL BLOOD GAS DELIVERY VENT; ARTERIAL BLOOD GAS HCO3 28.7 mmol/L; ARTERIAL BLOOD GAS MET HB 0.9 %sat (0.0-2.0); ARTERIAL BLOOD GAS PCO2 48.5 mmHg (35.0-45.0); ARTERIAL BLOOD GAS VENT MODE PRVC; ARTERIAL DRAW? YES
[2017-04-01 04:42] LABS: ARTERIAL BLD GAS O2 SATURATION 97.7 % (90.0-100.0); ARTERIAL BLOOD GAS CARBOXY HB 0.5 %sat (0.0-9.0); ARTERIAL BLOOD GAS HCO3 29.9 mmol/L; ARTERIAL BLOOD GAS MET HB 0.8 %sat (0.0-2.0); ARTERIAL BLOOD GAS pH 7.386 (7.350-7.450)
[2017-04-01 05:07] LABS: BASOPHIL# 0.1 X10e3 (0-0.3); BASOPHIL% 0.7 % (0-2.5); EOSINOPHIL# 0.3 X10e3 (0-0.7); HEMATOCRIT 33.5 % (38.0-50.0); HEMOGLOBIN 11.5 gm/dL (13.0-16.0); LYMPHOCYTE# 1.6 X10e3 (1.0-3.5); LYMPHOCYTE% 15.6 % (17.0-45.0); MEAN CELL VOLUME 93.8 FL (83-96); MEAN CORPUSCULAR HEMOGLOBIN 32.1 PG (28-34); MEAN CORPUSCULAR HGB CONC 34.2 g/dL (30-36); MEAN PLATELET VOLUME 10.3 FL (6.5-11.5); MONOCYTE% 9.6 % (3.0-12.0); NEUTROPHIL# 7.2 X10e3 (1.5-7.1); NEUTROPHIL% 71.1 % (40-75); PLATELET COUNT 161 X10e3 (140-420); RED BLOOD COUNT 3.57 X10e (3.90-5.60); RED CELL DISTRIBUTION WIDTH 13.9 % (11.0-15.5); WHITE BLOOD COUNT 10.1 X10e3 (4.0-10.5)
[2017-04-01 05:08] LABS: ARTERIAL BLOOD GAS ALLEN TEST NORMAL; ARTERIAL BLOOD GAS ART SITE LEFT RADIAL; ARTERIAL BLOOD GAS DELIVERY VENT; ARTERIAL BLOOD GAS VENT MODE PRVC; ARTERIAL DRAW? YES
[2017-04-01 05:08] LABS: DIFF IND NO
[2017-04-01 06:11] LABS: CALCIUM SERUM 8.1 mg/dL (8.4-10.2); GLOM FILT RATE Estimated 97.8 mL/min (>60); MAGNESIUM 2.3 mg/dL (1.6-3.0); POTASSIUM 4.2 mmol/L (3.5-5.1)
[2017-04-02 04:43] LABS: ARTERIAL BLD GAS O2 SATURATION 94.3 % (90.0-100.0); ARTERIAL BLOOD GAS CARBOXY HB 0.6 %sat (0.0-9.0); ARTERIAL BLOOD GAS pH 7.365 (7.350-7.450)
[2017-04-02 05:16] LABS: ARTERIAL BLOOD GAS ALLEN TEST NORMAL; ARTERIAL BLOOD GAS PCO2 56.1 mmHg (35.0-45.0); ARTERIAL BLOOD GAS PO2 76.4 mmHg (80.0-100); ARTERIAL DRAW? YES
[2017-04-02 05:18] LABS: ARTERIAL BLOOD GAS ART SITE LEFT RADIAL; ARTERIAL BLOOD GAS DELIVERY VENT; ARTERIAL BLOOD GAS VENT MODE PRVC
[2017-04-02 05:29] LABS: BASOPHIL% 0.3 % (0-2.5); EOSINOPHIL# 0.2 X10e3 (0-0.7); EOSINOPHIL% 1.6 % (0.0-7.0); HEMATOCRIT 31.5 % (38.0-50.0); HEMOGLOBIN 10.4 gm/dL (13.0-16.0); LYMPHOCYTE# 1.3 X10e3 (1.0-3.5); LYMPHOCYTE% 8.6 % (17.0-45.0); MEAN CELL VOLUME 94.5 FL (83-96); MEAN CORPUSCULAR HEMOGLOBIN 31.1 PG (28-34); MEAN CORPUSCULAR HGB CONC 32.9 g/dL (30-36); MONOCYTE% 6.7 % (3.0-12.0); NEUTROPHIL# 12.2 X10e3 (1.5-7.1); NEUTROPHIL% 82.8 % (40-75); PLATELET COUNT 171 X10e3 (140-420); RED BLOOD COUNT 3.33 X10e (3.90-5.60); RED CELL DISTRIBUTION WIDTH 13.7 % (11.0-15.5); WHITE BLOOD COUNT 14.8 X10e3 (4.0-10.5)
[2017-04-02 05:34] LABS: DIFF IND NO
[2017-04-02 06:10] LABS: BUN/CREATININE RATIO 24.44; CALCIUM SERUM 7.9 mg/dL (8.4-10.2); CREATININE SERUM 0.9 mg/dL (0.6-1.4); POTASSIUM 4.2 mmol/L (3.5-5.1)
[2017-04-03 04:55] LABS: ARTERIAL BLD GAS O2 SATURATION 98.1 % (90.0-100.0); ARTERIAL BLOOD GAS CARBOXY HB 0.6 %sat (0.0-9.0); ARTERIAL BLOOD GAS HCO3 32.3 mmol/L; ARTERIAL BLOOD GAS MET HB 0.9 %sat (0.0-2.0); ARTERIAL BLOOD GAS PCO2 35.8 mmHg (35.0-45.0); ARTERIAL BLOOD GAS pH 7.564 (7.350-7.450)
[2017-04-03 04:56] LABS: URINE SOURCE CATH
[2017-04-03 04:59] LABS: ARTERIAL BLOOD GAS ALLEN TEST NORMAL; ARTERIAL BLOOD GAS ART SITE LEFT RADIAL; ARTERIAL BLOOD GAS DELIVERY VENT; ARTERIAL BLOOD GAS VENT MODE PRVC; ARTERIAL DRAW? YES
[2017-04-03 05:01] LABS: URINE APPEARANCE CLEAR; URINE BILIRUBIN NEG (NEG); URINE BLOOD NEG (NEG); URINE COLOR DK YELLOW; URINE GLUCOSE NEG (NEG); URINE KETONE NEG (NEG); URINE LEUKOCYTE ESTERASE TRACE (NEG); URINE NITRATE NEG (NEG); URINE PROTEIN NEG (NEG); URINE SPECIFIC GRAVITY 1.026 (1.003-1.035)
[2017-04-03 05:04] LABS: URINE BACTERIA AUWI NEG (NEGATIVE); URINE SQUAMOUS EPITHELIAL CELL NONE SEEN /[HPF]
[2017-04-03 05:45] LABS: BASOPHIL# 0.1 X10e3 (0-0.3); BASOPHIL% 0.6 % (0-2.5); EOSINOPHIL# 0.1 X10e3 (0-0.7); HEMATOCRIT 31.1 % (38.0-50.0); HEMOGLOBIN 10.5 gm/dL (13.0-16.0); LYMPHOCYTE# 1.5 X10e3 (1.0-3.5); LYMPHOCYTE% 13.5 % (17.0-45.0); MEAN CELL VOLUME 93.4 FL (83-96); MEAN CORPUSCULAR HEMOGLOBIN 31.4 PG (28-34); MEAN CORPUSCULAR HGB CONC 33.6 g/dL (30-36); MONOCYTE# 0.9 X10e3 (0-1.0); MONOCYTE% 8.2 % (3.0-12.0); NEUTROPHIL# 8.6 X10e3 (1.5-7.1); NEUTROPHIL% 76.7 % (40-75); PLATELET COUNT 222 X10e3 (140-420); RED BLOOD COUNT 3.33 X10e (3.90-5.60); RED CELL DISTRIBUTION WIDTH 13.8 % (11.0-15.5); WHITE BLOOD COUNT 11.2 X10e3 (4.0-10.5)
[2017-04-03 05:54] LABS: DIFF IND NO
[2017-04-03 07:03] LABS: BILIRUBIN,TOTAL 1.1 mg/dL (0.2-2.0); BUN/CREATININE RATIO 28.57; CALCIUM SERUM 8.3 mg/dL (8.4-10.2); CREATININE SERUM 0.7 mg/dL (0.6-1.4); GLOM FILT RATE Estimated 123.2 mL/min (>60); POTASSIUM 3.4 mmol/L (3.5-5.1); PROTEIN TOTAL SERUM 6.2 g/dL (6.0-8.3)
[2017-04-04 04:17] LABS: BASOPHIL# 0.1 X10e3 (0-0.3); BASOPHIL% 1.4 % (0-2.5); DIFF IND NO; EOSINOPHIL# 0.4 X10e3 (0-0.7); HEMOGLOBIN 10.5 gm/dL (13.0-16.0); LYMPHOCYTE# 1.5 X10e3 (1.0-3.5); LYMPHOCYTE% 14.1 % (17.0-45.0); MEAN CELL VOLUME 93.7 FL (83-96); MEAN CORPUSCULAR HEMOGLOBIN 31.7 PG (28-34); MEAN CORPUSCULAR HGB CONC 33.9 g/dL (30-36); MEAN PLATELET VOLUME 9.8 FL (6.5-11.5); MONOCYTE# 0.7 X10e3 (0-1.0); NEUTROPHIL# 7.6 X10e3 (1.5-7.1); NEUTROPHIL% 73.5 % (40-75); PLATELET COUNT 253 X10e3 (140-420); RED BLOOD COUNT 3.31 X10e (3.90-5.60); RED CELL DISTRIBUTION WIDTH 13.9 % (11.0-15.5); WHITE BLOOD COUNT 10.4 X10e3 (4.0-10.5)
[2017-04-04 04:22] LABS: ARTERIAL BLD GAS O2 SATURATION 96.3 % (90.0-100.0); ARTERIAL BLOOD GAS CARBOXY HB 0.6 %sat (0.0-9.0); ARTERIAL BLOOD GAS HCO3 29.4 mmol/L; ARTERIAL BLOOD GAS MET HB 0.8 %sat (0.0-2.0); ARTERIAL BLOOD GAS PCO2 36.3 mmHg (35.0-45.0); ARTERIAL BLOOD GAS PO2 84.9 mmHg (80.0-100); ARTERIAL BLOOD GAS pH 7.517 (7.350-7.450)
[2017-04-04 04:27] LABS: ARTERIAL BLOOD GAS ALLEN TEST NORMAL; ARTERIAL BLOOD GAS ART SITE RIGHT RADIAL; ARTERIAL BLOOD GAS DELIVERY VENT; ARTERIAL BLOOD GAS VENT MODE PRVC; ARTERIAL DRAW? YES
[2017-04-04 04:50] LABS: BUN/CREATININE RATIO 28.75; CALCIUM SERUM 8.1 mg/dL (8.4-10.2); CREATININE SERUM 0.8 mg/dL (0.6-1.4); GLOM FILT RATE Estimated 116.6 mL/min (>60); MAGNESIUM 1.8 mg/dL (1.6-3.0); POTASSIUM 3.6 mmol/L (3.5-5.1)
[2017-04-05 03:44] LABS: ARTERIAL BLD GAS O2 SATURATION 95.4 % (90.0-100.0); ARTERIAL BLOOD GAS CARBOXY HB 0.5 %sat (0.0-9.0); ARTERIAL BLOOD GAS HCO3 27.3 mmol/L; ARTERIAL BLOOD GAS MET HB 0.7 %sat (0.0-2.0); ARTERIAL BLOOD GAS PCO2 35.2 mmHg (35.0-45.0); ARTERIAL BLOOD GAS pH 7.497 (7.350-7.450)
[2017-04-05 03:46] LABS: ARTERIAL BLOOD GAS ALLEN TEST NORMAL; ARTERIAL BLOOD GAS PO2 72.8 mmHg (80.0-100); ARTERIAL DRAW? YES
[2017-04-05 03:47] LABS: ARTERIAL BLOOD GAS ART SITE RIGHT RADIAL; ARTERIAL BLOOD GAS DELIVERY VENT; ARTERIAL BLOOD GAS VENT MODE PRVC ITIME 1.00
[2017-04-05 05:43] LABS: HEMATOCRIT 30.9 % (38.0-50.0); HEMOGLOBIN 10.5 gm/dL (13.0-16.0); MEAN CELL VOLUME 92.8 FL (83-96); MEAN CORPUSCULAR HEMOGLOBIN 31.4 PG (28-34); MEAN CORPUSCULAR HGB CONC 33.8 g/dL (30-36); MEAN PLATELET VOLUME 9.8 FL (6.5-11.5); RED BLOOD COUNT 3.34 X10e (3.90-5.60); RED CELL DISTRIBUTION WIDTH 13.7 % (11.0-15.5); WHITE BLOOD COUNT 9.4 X10e3 (4.0-10.5)
[2017-04-05 06:13] LABS: ALBUMIN SERUM 1.8 g/dL (3.5-5.0); BILIRUBIN,TOTAL 1.1 mg/dL (0.2-2.0); BUN/CREATININE RATIO 23.75; CALCIUM SERUM 8.1 mg/dL (8.4-10.2); CREATININE SERUM 0.8 mg/dL (0.6-1.4); GLOM FILT RATE Estimated 116.6 mL/min (>60); MAGNESIUM 1.8 mg/dL (1.6-3.0); POTASSIUM 3.5 mmol/L (3.5-5.1); PROTEIN TOTAL SERUM 5.6 g/dL (6.0-8.3)
[2017-04-06 03:46] LABS: ARTERIAL BLD GAS O2 SATURATION 90.2 % (90.0-100.0); ARTERIAL BLOOD GAS CARBOXY HB 0.8 %sat (0.0-9.0); ARTERIAL BLOOD GAS HCO3 25.7 mmol/L; ARTERIAL BLOOD GAS pH 7.438 (7.350-7.450)
[2017-04-06 04:01] LABS: ARTERIAL BLOOD GAS ALLEN TEST NORMAL; ARTERIAL BLOOD GAS ART SITE RIGHT RADIAL; ARTERIAL BLOOD GAS DELIVERY VENT; ARTERIAL BLOOD GAS PO2 62.8 mmHg (80.0-100); ARTERIAL BLOOD GAS VENT MODE PRVC 1.00 ITIME; ARTERIAL DRAW? YES
[2017-04-06 04:32] LABS: BASOPHIL# 0.1 X10e3 (0-0.3); BASOPHIL% 0.6 % (0-2.5); EOSINOPHIL# 0.3 X10e3 (0-0.7); EOSINOPHIL% 2.8 % (0.0-7.0); HEMATOCRIT 30.2 % (38.0-50.0); HEMOGLOBIN 10.1 gm/dL (13.0-16.0); LYMPHOCYTE# 1.4 X10e3 (1.0-3.5); LYMPHOCYTE% 14.7 % (17.0-45.0); MEAN CELL VOLUME 94.8 FL (83-96); MEAN CORPUSCULAR HEMOGLOBIN 31.6 PG (28-34); MEAN CORPUSCULAR HGB CONC 33.4 g/dL (30-36); MEAN PLATELET VOLUME 9.8 FL (6.5-11.5); MONOCYTE# 0.9 X10e3 (0-1.0); MONOCYTE% 8.9 % (3.0-12.0); PLATELET COUNT 286 X10e3 (140-420); RED BLOOD COUNT 3.19 X10e (3.90-5.60); RED CELL DISTRIBUTION WIDTH 13.6 % (11.0-15.5); WHITE BLOOD COUNT 9.7 X10e3 (4.0-10.5)
[2017-04-06 04:39] LABS: DIFF IND NO
[2017-04-06 05:02] LABS: ALBUMIN SERUM 1.9 g/dL (3.5-5.0); BILIRUBIN,TOTAL 1.1 mg/dL (0.2-2.0); CALCIUM SERUM 7.8 mg/dL (8.4-10.2); CREATININE SERUM 0.9 mg/dL (0.6-1.4); POTASSIUM 3.4 mmol/L (3.5-5.1); PROTEIN TOTAL SERUM 6.1 g/dL (6.0-8.3)
[2017-04-07 03:53] LABS: ARTERIAL BLD GAS O2 SATURATION 94.1 % (90.0-100.0); ARTERIAL BLOOD GAS CARBOXY HB 0.5 %sat (0.0-9.0); ARTERIAL BLOOD GAS HCO3 25.6 mmol/L; ARTERIAL BLOOD GAS MET HB 0.8 %sat (0.0-2.0); ARTERIAL BLOOD GAS PCO2 34.4 mmHg (35.0-45.0)
[2017-04-07 04:01] LABS: ARTERIAL BLOOD GAS ALLEN TEST NORMAL; ARTERIAL BLOOD GAS ART SITE RIGHT RADIAL; ARTERIAL BLOOD GAS DELIVERY VENT; ARTERIAL BLOOD GAS PO2 66.9 mmHg (80.0-100); ARTERIAL BLOOD GAS VENT MODE PRVC; ARTERIAL DRAW? YES
[2017-04-07 05:21] LABS: BASOPHIL# 0.1 X10e3 (0-0.3); BASOPHIL% 1.4 % (0-2.5); EOSINOPHIL# 0.3 X10e3 (0-0.7); EOSINOPHIL% 3.3 % (0.0-7.0); HEMOGLOBIN 10.5 gm/dL (13.0-16.0); LYMPHOCYTE# 1.9 X10e3 (1.0-3.5); LYMPHOCYTE% 19.1 % (17.0-45.0); MEAN CORPUSCULAR HEMOGLOBIN 31.8 PG (28-34); MEAN CORPUSCULAR HGB CONC 33.9 g/dL (30-36); MEAN PLATELET VOLUME 9.6 FL (6.5-11.5); MONOCYTE# 0.9 X10e3 (0-1.0); MONOCYTE% 8.5 % (3.0-12.0); NEUTROPHIL# 6.9 X10e3 (1.5-7.1); NEUTROPHIL% 67.7 % (40-75); PLATELET COUNT 316 X10e3 (140-420); RED CELL DISTRIBUTION WIDTH 13.9 % (11.0-15.5); WHITE BLOOD COUNT 10.1 X10e3 (4.0-10.5)
[2017-04-07 05:29] LABS: DIFF IND NO
[2017-04-07 07:01] LABS: ALBUMIN SERUM 1.9 g/dL (3.5-5.0); BILIRUBIN,TOTAL 0.8 mg/dL (0.2-2.0); BUN/CREATININE RATIO 22.5; CALCIUM SERUM 8.3 mg/dL (8.4-10.2); CREATININE SERUM 0.8 mg/dL (0.6-1.4); GLOM FILT RATE Estimated 116.6 mL/min (>60); MAGNESIUM 1.8 mg/dL (1.6-3.0); POTASSIUM 3.6 mmol/L (3.5-5.1); PROTEIN TOTAL SERUM 6.2 g/dL (6.0-8.3)
[2017-04-08 04:54] LABS: ARTERIAL BLD GAS O2 SATURATION 94.1 % (90.0-100.0); ARTERIAL BLOOD GAS CARBOXY HB 0.7 %sat (0.0-9.0); ARTERIAL BLOOD GAS HCO3 27.7 mmol/L; ARTERIAL BLOOD GAS MET HB 0.9 %sat (0.0-2.0); ARTERIAL BLOOD GAS PCO2 38.9 mmHg (35.0-45.0); ARTERIAL BLOOD GAS pH 7.461 (7.350-7.450)
[2017-04-08 05:10] LABS: BASOPHIL# 0.2 X10e3 (0-0.3); BASOPHIL% 1.6 % (0-2.5); EOSINOPHIL# 0.4 X10e3 (0-0.7); EOSINOPHIL% 3.4 % (0.0-7.0); HEMATOCRIT 31.3 % (38.0-50.0); HEMOGLOBIN 10.3 gm/dL (13.0-16.0); LYMPHOCYTE# 2.3 X10e3 (1.0-3.5); LYMPHOCYTE% 18.2 % (17.0-45.0); MEAN CELL VOLUME 94.1 FL (83-96); MEAN CORPUSCULAR HEMOGLOBIN 31.1 PG (28-34); MEAN PLATELET VOLUME 9.2 FL (6.5-11.5); MONOCYTE# 1.1 X10e3 (0-1.0); MONOCYTE% 8.4 % (3.0-12.0); NEUTROPHIL# 8.6 X10e3 (1.5-7.1); NEUTROPHIL% 68.4 % (40-75); PLATELET COUNT 352 X10e3 (140-420); RED BLOOD COUNT 3.33 X10e (3.90-5.60); RED CELL DISTRIBUTION WIDTH 14.2 % (11.0-15.5); WHITE BLOOD COUNT 12.6 X10e3 (4.0-10.5)
[2017-04-08 05:12] LABS: ARTERIAL BLOOD GAS PO2 72.6 mmHg (80.0-100)
[2017-04-08 05:13] LABS: DIFF IND NO
[2017-04-08 05:13] LABS: ARTERIAL BLOOD GAS ALLEN TEST NORMAL; ARTERIAL BLOOD GAS ART SITE LEFT RADIAL; ARTERIAL BLOOD GAS DELIVERY VENT; ARTERIAL BLOOD GAS VENT MODE PRVC; ARTERIAL DRAW? YES
[2017-04-08 07:05] LABS: BILIRUBIN,TOTAL 1.1 mg/dL (0.2-2.0); BUN/CREATININE RATIO 28.57; CALCIUM SERUM 8.2 mg/dL (8.4-10.2); CREATININE SERUM 0.7 mg/dL (0.6-1.4); GLOM FILT RATE Estimated 123.2 mL/min (>60); POTASSIUM 3.9 mmol/L (3.5-5.1); PROTEIN TOTAL SERUM 6.4 g/dL (6.0-8.3)
== END 2017-04-08 20:30 | DRG 3 ==
LOC: CED 02:41 → CICCU3 05:10 → CEDOF 05:10 → CICCU3 05:26 → CED 05:26 → CEDOF 06:18 → CICCU3 10:00 → CEDOF 10:00 → CICCU3 03-24 11:54
PROVIDERS: Emergency Medicine; Internal Medicine; Internal Medicine Pulmonary Disease; Nurse Practitioner
PROC: 0DH63UZ Insertion of Feeding Device into Stomach, Percutaneous Approach (ICD-10-PCS; principal; 2017-03-23)
PROC: 5A1955Z Respiratory Ventilation, Greater than 96 Consecutive Hours (ICD-10-PCS; 2017-03-23)
PROC: 0BH18EZ Insertion of Endotracheal Airway into Trachea, Via Natural or Artificial Opening Endoscopic (ICD-10-PCS; 2017-03-23)
PROC: B246YZZ Ultrasonography of Right and Left Heart using Other Contrast (ICD-10-PCS; 2017-03-23)
PROC: 05HN33Z Insertion of Infusion Device into Left Internal Jugular Vein, Percutaneous Approach (ICD-10-PCS; 2017-03-25)
PROC: 0B988ZX Drainage of Left Upper Lobe Bronchus, Via Natural or Artificial Opening Endoscopic, Diagnostic (ICD-10-PCS; 2017-03-26)
PROC: 0B9M8ZZ Drainage of Bilateral Lungs, Via Natural or Artificial Opening Endoscopic (ICD-10-PCS; 2017-03-26 07:59)
PROC: B246YZZ Ultrasonography of Right and Left Heart using Other Contrast (ICD-10-PCS; 2017-03-30)
PROC: 0B113F4 Bypass Trachea to Cutaneous with Tracheostomy Device, Percutaneous Approach (ICD-10-PCS; 2017-04-02)
PROC: 02HV33Z Insertion of Infusion Device into Superior Vena Cava, Percutaneous Approach (ICD-10-PCS; 2017-04-02)
PROC: 4A02X4A Measurement of Cardiac Electrical Activity, Guidance, External Approach (ICD-10-PCS; 2017-04-02)
PROC: B548ZZA Ultrasonography of Superior Vena Cava, Guidance (ICD-10-PCS; 2017-04-02)
PROC: B32TYZZ Computerized Tomography (CT Scan) of Left Pulmonary Artery using Other Contrast (ICD-10-PCS; 2017-04-06)
PROC: B32SYZZ Computerized Tomography (CT Scan) of Right Pulmonary Artery using Other Contrast (ICD-10-PCS; 2017-04-06)
DX: F10.231 Alcohol dependence with withdrawal delirium (principal); R65.20 Severe sepsis without septic shock; J69.0 Pneumonitis due to inhalation of food and vomit; A41.9 Sepsis, unspecified organism; G92 Toxic encephalopathy; E43 Unspecified severe protein-calorie malnutrition; J96.01 Acute respiratory failure with hypoxia; I85.00 Esophageal varices without bleeding; E87.2 Acidosis; Z68.26 Body mass index [BMI] 26.0-26.9, adult; F17.210 Nicotine dependence, cigarettes, uncomplicated; K21.9 Gastro-esophageal reflux disease without esophagitis; Z81.1 Family history of alcohol abuse and dependence; K70.10 Alcoholic hepatitis without ascites; E66.01 Morbid (severe) obesity due to excess calories; D69.59 Other secondary thrombocytopenia; J44.9 Chronic obstructive pulmonary disease, unspecified; I80.8 Phlebitis and thrombophlebitis of other sites
CPT/HCPCS: 36415; 36600; 70450; 71010; 71250; 71275; 74000; 80048; 80053; 80076; 80202; 80307; 81003; 82308; 82550; 82553; 82803; 82947; 83605; 83735; 83880; 84132; 84439; 84443; 84484; 85025; 85027; 85610; 86592; 87040; 87070; 87086; 87102; 87106; 87116; 87205; 87206; 87252; 87254; 87278; 88108; 88305; 88312; 89051; 93005; 93306; 93308; 93970; 94002; 94003; 94640; 94760; 94761; 96361; 96365; 96375; 99291; C1769; C9113; G0480; J0171; J0330; J0360; J0696; J1650; J1940; J1956; J2060; J2250; J2765; J3010; J3260; J3370; J3411; J3475; Q9967